=== PATIENT | female | born 1945 | race Caucasian/White ===

== ENCOUNTER → 2016-12-13 | Outpatient (CLI) | payer MEDICARE ==
[~2016-12-13] MED LIST: ****K-Phos500 MG PO; ANAPROX DS550 MG PO; ASCRIPTIN1 TA1 PO; ASPIRIN81 M1 PO; AUGMENTIN 875 M1 TAB PO; CALCIUM ACETAT667 MG PO; CALCIUM1 CAP; CELLCEPT500 MG PO; CIPRODEX 0.3%-7.5 ML OT; CIPROFLOXACIN500 MG PO; COLACE100 MG PO; Diltiazem180 MG PO; FEOSOL325 MG PO; HUMALOG 751 UNIT/0.0 SC; HUMALOG PEN100 U/ML SC; LASIX40 MG PO; LISINOPRIL20 MG PO; METFORMIN1000 MG PO; MULTIVITAMIN1 CTB PO; NORVASC5 MG PO; NYSTATIN100000 U/M PO; OMEPRAZOLE20 M2 PO; PRAVACHOL40 MG PO; PROGRAF0.5 MG PO; ROCALTROL0.25 MC2 PO; SEPTRA DS 800 M1 TAB PO; SODIUM BICARBO650 MG PO; SYNTHROID,LEVO50 MCG; TOPROL XL25 MG PO; VALCYTE450 MG PO; VITAMIN D50000 I2 PO; VITAMIN D50000 I3 PO
[2016-12-13 08:12] LABS: BASO % 0.6 % (0.0-1.0); EOS # 0.2 10*3/uL (0.0-0.4); EOS % 4.2 % (1.0-4.0); HEMATOCRIT 29.5 % (37.0-47.0); HEMOGLOBIN 9.3 g/dl (12.0-16.0); LYMPH % 19.4 % (27.0-41.0); MEAN CELL VOLUME 91.6 fl (81.0-99.0); MEAN CORPUSCULAR HGB 28.9 pg (27.0-31.0); MEAN CORPUSCULAR HGB CONC 31.5 g/dl (33.0-37.0); MEAN PLATELET VOLUME 9.3 fl (9.6-12.3); MONO # 0.3 10*3/uL (0.1-1.0); MONO % 6.6 % (3.0-9.0); NEUT # 3.5 10*3/uL (2.3-7.9); NEUT % 68.8 % (47.0-73.0); PLATELET COUNT AUTOMATED 323 10*3/uL (130-400); RED BLOOD COUNT 3.22 10*6/uL (4.10-5.10); RED CELL DISTRI WIDTH 17.2 % (0-14.5)
[2016-12-13 08:40] LABS: ALBUMIN 2.7 gm/dl (3.1-4.5); ALKALINE PHOSPHATASE 86 U/L (45-117); BILIRUBIN, TOTAL 0.2 mg/dl (0.2-1.0); BUN 10 mg/dl (7-24); CARBON DIOXIDE 21 mmol/L (21-32); CHLORIDE 120 mmol/L (98-107); CHOLESTEROL 90 mg/dL (<200); CPK 31 U/L (26-192); EST GLOM FILT AFRICAN AMERICAN > 60 ml/min; GLUCOSE 88 mg/dL (65-99); LDH 140 U/L (84-246); MAGNESIUM 1.6 mg/dL (1.5-2.1); PHOSPHOROUS 2.1 mg/dL (2.5-4.9); POTASSIUM 5.1 mmol/L (3.5-5.1); SGOT/AST 14 IU/L (3-35); SGPT/ALT 16 U/L (12-78); SODIUM 148 mmol/L (136-145); TOTAL PROTEIN 5.9 gm/dL (6.4-8.2); URIC ACID 6.2 mg/dL (2.6-6.0)
== END | disposition home or self-care (01) ==
LOC: LAB 07:52
PROVIDERS: Surgery
DX: I12.9 Hypertensive chronic kidney disease with stage 1 through stage 4 chronic kidney disease, or unspecified chronic kidney disease (principal); N18.9 Chronic kidney disease, unspecified; E10.9 Type 1 diabetes mellitus without complications; D59.0 Drug-induced autoimmune hemolytic anemia; B25.9 Cytomegaloviral disease, unspecified; E83.40 Disorders of magnesium metabolism, unspecified; E78.2 Mixed hyperlipidemia; Z79.899 Other long term (current) drug therapy; T86.10 Unspecified complication of kidney transplant; Z94.0 Kidney transplant status

== ENCOUNTER → 2016-12-20 | Outpatient (CLI) | payer MEDICARE ==
[2016-12-20 08:48] LABS: BASO % 0.6 % (0.0-1.0); EOS # 0.2 10*3/uL (0.0-0.4); EOS % 3.3 % (1.0-4.0); HEMATOCRIT 32.4 % (37.0-47.0); HEMOGLOBIN 9.8 g/dl (12.0-16.0); LYMPH # 0.9 10*3/uL (1.3-4.4); LYMPH % 17.4 % (27.0-41.0); MEAN CELL VOLUME 91.5 fl (81.0-99.0); MEAN CORPUSCULAR HGB 27.7 pg (27.0-31.0); MEAN CORPUSCULAR HGB CONC 30.2 g/dl (33.0-37.0); MEAN PLATELET VOLUME 10.9 fl (9.6-12.3); MONO # 0.3 10*3/uL (0.1-1.0); MONO % 6.1 % (3.0-9.0); NEUT # 3.7 10*3/uL (2.3-7.9); NEUT % 72.2 % (47.0-73.0); PLATELET COUNT AUTOMATED 261 10*3/uL (130-400); RED BLOOD COUNT 3.54 10*6/uL (4.10-5.10); RED CELL DISTRI WIDTH 17.8 % (0-14.5); WHITE BLOOD COUNT 5.1 10*3/uL (4.8-10.8)
[2016-12-20 09:04] LABS: ALBUMIN 2.7 gm/dl (3.1-4.5); CARBON DIOXIDE 20 mmol/L (21-32); CHLORIDE 121 mmol/L (98-107); EST GLOM FILT AFRICAN AMERICAN > 60 ml/min; GLUCOSE 90 mg/dL (65-99); MAGNESIUM 1.6 mg/dL (1.5-2.1); POTASSIUM 4.8 mmol/L (3.5-5.1); SGOT/AST 16 IU/L (3-35); SGPT/ALT 19 U/L (12-78); SODIUM 148 mmol/L (136-145); URIC ACID 5.8 mg/dL (2.6-6.0)
[2016-12-20 09:08] LABS: ALKALINE PHOSPHATASE 96 U/L (45-117); BILIRUBIN, TOTAL 0.3 mg/dl (0.2-1.0); BUN 14 mg/dl (7-24); CHOLESTEROL 76 mg/dL (<200); CPK 32 U/L (26-192); LDH 161 U/L (84-246); PHOSPHOROUS 1.8 mg/dL (2.5-4.9)
== END | disposition home or self-care (01) ==
LOC: LAB 07:53
PROVIDERS: Surgery
DX: I12.9 Hypertensive chronic kidney disease with stage 1 through stage 4 chronic kidney disease, or unspecified chronic kidney disease (principal); D50.9 Iron deficiency anemia, unspecified; B25.9 Cytomegaloviral disease, unspecified; E83.40 Disorders of magnesium metabolism, unspecified; E10.9 Type 1 diabetes mellitus without complications; E78.2 Mixed hyperlipidemia; T86.10 Unspecified complication of kidney transplant; Z94.0 Kidney transplant status; Z79.899 Other long term (current) drug therapy

== ENCOUNTER → 2016-12-27 | Outpatient (CLI) | payer MEDICARE ==
[2016-12-27 08:15] LABS: BASO % 0.7 % (0.0-1.0); EOS # 0.2 10*3/uL (0.0-0.4); EOS % 4.1 % (1.0-4.0); HEMATOCRIT 32.4 % (37.0-47.0); HEMOGLOBIN 9.9 g/dl (12.0-16.0); LYMPH # 0.9 10*3/uL (1.3-4.4); LYMPH % 20.5 % (27.0-41.0); MEAN CELL VOLUME 91.8 fl (81.0-99.0); MEAN CORPUSCULAR HGB CONC 30.6 g/dl (33.0-37.0); MEAN PLATELET VOLUME 10.8 fl (9.6-12.3); MONO # 0.3 10*3/uL (0.1-1.0); MONO % 5.8 % (3.0-9.0); NEUT % 68.4 % (47.0-73.0); PLATELET COUNT AUTOMATED 231 10*3/uL (130-400); RED BLOOD COUNT 3.53 10*6/uL (4.10-5.10); RED CELL DISTRI WIDTH 17.6 % (0-14.5); WHITE BLOOD COUNT 4.3 10*3/uL (4.8-10.8)
[2016-12-27 08:45] LABS: ALBUMIN 2.8 gm/dl (3.1-4.5); BUN 20 mg/dl (7-24); CARBON DIOXIDE 21 mmol/L (21-32); CHLORIDE 117 mmol/L (98-107); EST GLOM FILT AFRICAN AMERICAN > 60 ml/min; GLUCOSE 80 mg/dL (65-99); MAGNESIUM 1.5 mg/dL (1.5-2.1); PHOSPHOROUS 2.3 mg/dL (2.5-4.9); POTASSIUM 4.2 mmol/L (3.5-5.1); SGOT/AST 14 IU/L (3-35); SGPT/ALT 16 U/L (12-78); SODIUM 144 mmol/L (136-145); URIC ACID 5.6 mg/dL (2.6-6.0)
[2016-12-27 08:47] LABS: ALKALINE PHOSPHATASE 104 U/L (45-117); BILIRUBIN, TOTAL 0.2 mg/dl (0.2-1.0); CPK 35 U/L (26-192); LDH 144 U/L (84-246)
== END | disposition home or self-care (01) ==
LOC: LAB 07:43
PROVIDERS: Surgery
DX: I12.9 Hypertensive chronic kidney disease with stage 1 through stage 4 chronic kidney disease, or unspecified chronic kidney disease (principal); B25.9 Cytomegaloviral disease, unspecified; E10.22 Type 1 diabetes mellitus with diabetic chronic kidney disease; E83.40 Disorders of magnesium metabolism, unspecified; E78.2 Mixed hyperlipidemia; D59.0 Drug-induced autoimmune hemolytic anemia; T86.10 Unspecified complication of kidney transplant; Z79.899 Other long term (current) drug therapy; Z94.0 Kidney transplant status

== ENCOUNTER → 2017-01-10 | Outpatient (CLI) | payer MEDICARE ==
[2017-01-10 07:57] LABS: BASO % 0.6 % (0.0-1.0); EOS # 0.2 10*3/uL (0.0-0.4); EOS % 4.4 % (1.0-4.0); HEMATOCRIT 31.9 % (37.0-47.0); HEMOGLOBIN 9.9 g/dl (12.0-16.0); LYMPH % 18.7 % (27.0-41.0); MEAN CELL VOLUME 91.4 fl (81.0-99.0); MEAN CORPUSCULAR HGB 28.4 pg (27.0-31.0); MEAN PLATELET VOLUME 9.7 fl (9.6-12.3); MONO # 0.3 10*3/uL (0.1-1.0); MONO % 4.8 % (3.0-9.0); NEUT # 3.7 10*3/uL (2.3-7.9); NEUT % 71.1 % (47.0-73.0); PLATELET COUNT AUTOMATED 199 10*3/uL (130-400); RED BLOOD COUNT 3.49 10*6/uL (4.10-5.10); RED CELL DISTRI WIDTH 16.9 % (0-14.5); WHITE BLOOD COUNT 5.2 10*3/uL (4.8-10.8)
[2017-01-10 08:16] LABS: BILIRUBIN, TOTAL 0.3 mg/dl (0.2-1.0); MAGNESIUM 1.5 mg/dL (1.5-2.1); PHOSPHOROUS 2.5 mg/dL (2.5-4.9); POTASSIUM 4.6 mmol/L (3.5-5.1); TOTAL PROTEIN 6.2 gm/dL (6.4-8.2); URIC ACID 6.2 mg/dL (2.6-6.0)
== END | disposition home or self-care (01) ==
LOC: LAB 07:37
PROVIDERS: Surgery
DX: I12.9 Hypertensive chronic kidney disease with stage 1 through stage 4 chronic kidney disease, or unspecified chronic kidney disease (principal); N18.9 Chronic kidney disease, unspecified; D59.0 Drug-induced autoimmune hemolytic anemia; B25.9 Cytomegaloviral disease, unspecified; E83.40 Disorders of magnesium metabolism, unspecified; E10.22 Type 1 diabetes mellitus with diabetic chronic kidney disease; E78.2 Mixed hyperlipidemia; T86.10 Unspecified complication of kidney transplant; Z94.0 Kidney transplant status; Z79.899 Other long term (current) drug therapy

== ENCOUNTER → 2017-01-17 | Outpatient (CLI) | payer MEDICARE ==
[2017-01-17 08:17] LABS: BASO % 0.2 % (0.0-1.0); EOS # 0.2 10*3/uL (0.0-0.4); EOS % 3.9 % (1.0-4.0); HEMATOCRIT 31.9 % (37.0-47.0); IG # 0.1 10*3/uL (0.0-0.1); LYMPH # 0.9 10*3/uL (1.3-4.4); LYMPH % 14.7 % (27.0-41.0); MEAN CELL VOLUME 90.9 fl (81.0-99.0); MEAN CORPUSCULAR HGB 28.5 pg (27.0-31.0); MEAN CORPUSCULAR HGB CONC 31.3 g/dl (33.0-37.0); MONO # 0.2 10*3/uL (0.1-1.0); MONO % 3.9 % (3.0-9.0); NEUT # 4.5 10*3/uL (2.3-7.9); NEUT % 75.9 % (47.0-73.0); PLATELET COUNT AUTOMATED 233 10*3/uL (130-400); RED BLOOD COUNT 3.51 10*6/uL (4.10-5.10); RED CELL DISTRI WIDTH 16.7 % (0-14.5); WHITE BLOOD COUNT 5.9 10*3/uL (4.8-10.8)
[2017-01-17 08:47] LABS: BUN 15 mg/dl (7-24); CARBON DIOXIDE 23 mmol/L (21-32); CHLORIDE 115 mmol/L (98-107); CHOLESTEROL 81 mg/dL (<200); EST GLOM FILT AFRICAN AMERICAN > 60 ml/min; GLUCOSE 116 mg/dL (65-99); MAGNESIUM 1.4 mg/dL (1.5-2.1); PHOSPHOROUS 1.9 mg/dL (2.5-4.9); POTASSIUM 4.2 mmol/L (3.5-5.1); SGOT/AST 15 IU/L (3-35); SGPT/ALT 17 U/L (12-78); SODIUM 143 mmol/L (136-145); URIC ACID 5.2 mg/dL (2.6-6.0)
[2017-01-17 08:50] LABS: ALKALINE PHOSPHATASE 94 U/L (45-117); BILIRUBIN, TOTAL 0.2 mg/dl (0.2-1.0); CPK 31 U/L (26-192); LDH 128 U/L (84-246); TOTAL PROTEIN 6.2 gm/dL (6.4-8.2)
== END | disposition home or self-care (01) ==
LOC: LAB 07:39
PROVIDERS: Surgery
DX: I12.9 Hypertensive chronic kidney disease with stage 1 through stage 4 chronic kidney disease, or unspecified chronic kidney disease (principal); E10.22 Type 1 diabetes mellitus with diabetic chronic kidney disease; N18.9 Chronic kidney disease, unspecified; B25.9 Cytomegaloviral disease, unspecified; D59.0 Drug-induced autoimmune hemolytic anemia; E83.40 Disorders of magnesium metabolism, unspecified; E78.2 Mixed hyperlipidemia; T86.10 Unspecified complication of kidney transplant; Z94.0 Kidney transplant status; Z79.899 Other long term (current) drug therapy

== ENCOUNTER → 2017-01-24 | Outpatient (CLI) | payer MEDICARE ==
[2017-01-24 08:21] LABS: BASO % 0.2 % (0.0-1.0); EOS # 0.2 10*3/uL (0.0-0.4); EOS % 2.7 % (1.0-4.0); HEMATOCRIT 31.6 % (37.0-47.0); HEMOGLOBIN 9.9 g/dl (12.0-16.0); LYMPH # 0.8 10*3/uL (1.3-4.4); LYMPH % 10.2 % (27.0-41.0); MEAN CELL VOLUME 90.5 fl (81.0-99.0); MEAN CORPUSCULAR HGB 28.4 pg (27.0-31.0); MEAN CORPUSCULAR HGB CONC 31.3 g/dl (33.0-37.0); MEAN PLATELET VOLUME 10.5 fl (9.6-12.3); MONO # 0.5 10*3/uL (0.1-1.0); MONO % 5.5 % (3.0-9.0); NEUT # 6.6 10*3/uL (2.3-7.9); NEUT % 80.9 % (47.0-73.0); PLATELET COUNT AUTOMATED 243 10*3/uL (130-400); RED BLOOD COUNT 3.49 10*6/uL (4.10-5.10); RED CELL DISTRI WIDTH 15.8 % (0-14.5); WHITE BLOOD COUNT 8.2 10*3/uL (4.8-10.8)
[2017-01-24 08:36] LABS: ALKALINE PHOSPHATASE 84 U/L (45-117); BILIRUBIN, TOTAL 0.4 mg/dl (0.2-1.0); BUN 10 mg/dl (7-24); CARBON DIOXIDE 24 mmol/L (21-32); CHLORIDE 111 mmol/L (98-107); CHOLESTEROL 82 mg/dL (<200); CPK 30 U/L (26-192); EST GLOM FILT AFRICAN AMERICAN > 60 ml/min; GLUCOSE 97 mg/dL (65-99); LDH 146 U/L (84-246); MAGNESIUM 1.4 mg/dL (1.5-2.1); PHOSPHOROUS 2.8 mg/dL (2.5-4.9); POTASSIUM 4.3 mmol/L (3.5-5.1); SGOT/AST 12 IU/L (3-35); SGPT/ALT 14 U/L (12-78); SODIUM 141 mmol/L (136-145); TOTAL PROTEIN 6.4 gm/dL (6.4-8.2); URIC ACID 4.9 mg/dL (2.6-6.0)
== END | disposition home or self-care (01) ==
LOC: LAB 07:48
PROVIDERS: Surgery
DX: I12.9 Hypertensive chronic kidney disease with stage 1 through stage 4 chronic kidney disease, or unspecified chronic kidney disease (principal); E10.22 Type 1 diabetes mellitus with diabetic chronic kidney disease; N18.9 Chronic kidney disease, unspecified; B25.9 Cytomegaloviral disease, unspecified; E83.40 Disorders of magnesium metabolism, unspecified; E78.2 Mixed hyperlipidemia; T86.10 Unspecified complication of kidney transplant; D59.0 Drug-induced autoimmune hemolytic anemia; Z94.0 Kidney transplant status; Z79.899 Other long term (current) drug therapy

== ENCOUNTER 2017-02-03 09:26 | Inpatient (IN) | payer MEDICARE ==
[~2017-02-03] VITALS: Ht 147.3 cm; Wt 73.9 kg
[2017-02-03] MEDS ORDERED: SYNTHROID25 MCG PO (09:38)
[2017-02-03 09:41] VITALS: BP 132/54
[2017-02-03] MEDS ORDERED: PROGRAF0.5 MG PO ×2 (09:41→09:43)
[2017-02-03] MEDS ORDERED: SEPTRA DS 800 M1 TAB PO (09:49)
[2017-02-03] MEDS ORDERED: Magnesium Oxid400 MG PO (09:52)
[2017-02-03] MEDS ORDERED: SMZ-TMP 400 MG-1 TAB PO (09:54)
[2017-02-03] MEDS ORDERED: FEROSUL325 M1 PO (09:58)
[2017-02-03 10:06] LABS: HEMATOCRIT 31.6 % (37.0-47.0); HEMOGLOBIN 9.7 g/dl (12.0-16.0); MEAN CELL VOLUME 91.3 fl (81.0-99.0); MEAN CORPUSCULAR HGB CONC 30.7 g/dl (33.0-37.0); MEAN PLATELET VOLUME 10.4 fl (9.6-12.3); PLATELET COUNT AUTOMATED 315 10*3/uL (130-400); RED BLOOD COUNT 3.46 10*6/uL (4.10-5.10); RED CELL DISTRI WIDTH 14.3 % (0-14.5); WHITE BLOOD COUNT 20.9 10*3/uL (4.8-10.8)
[2017-02-03 10:23] LABS: POTASSIUM 3.5 mmol/L (3.5-5.1)
[2017-02-03 10:26] LABS: TROPONIN I 0.298 ng/ml (<0.045)
[2017-02-03 10:33] LABS: LYMPHOCYTE # 0.4 10*3/uL (1.3-4.4); NEUTROPHIL # 19.4 10*3/uL (2.3-7.9); NEUTROPHILS 93 % (47-73); PLATELET SUFFICIENCY NORMAL (NORMAL); TOTAL CELLS COUNTED 100 #CELLS
[2017-02-03 11:32] VITALS: BP 162/92
[2017-02-03 11:33] LABS: BILIRUBIN NEGATIVE (NEGATIVE); BLOOD NEGATIVE (NEGATIVE); CLARITY SL CLOUDY (CLEAR); COLOR YELLOW (YELLOW); GLUCOSE NEGATIVE (NEGATIVE); KETONE NEGATIVE (NEGATIVE); LEUKO ESTERASE NEGATIVE (NEGATIVE); NITRITE NEGATIVE (NEGATIVE); PROTEIN TRACE (NEGATIVE); SPECIFIC GRAVITY 1.025 (1.005-1.030); UROBILINOGEN 0.2 E.U./dl (0.2-1.0)
[2017-02-03 11:36] VITALS: BP 142/51
[2017-02-03 11:47] LABS: BACTERIA TRACE; MUCOUS 1+
[2017-02-03 11:48] LABS: URINE REFLEX COMMENT NO (NO)
[2017-02-03 13:36] VITALS: BP 143/54
[2017-02-03 16:00] VITALS: BP 134/54
[2017-02-03 18:41] LABS: TROPONIN I 3.05 ng/ml (<0.045)
[2017-02-03 20:00] VITALS: BP 145/58
[2017-02-03] MEDS ORDERED: LISINOPRIL2.5 MG PO (20:28)
== END 2017-02-03 20:15 | disposition short-term general hospital (02) | DRG 871 ==
LOC: ED 09:26 → EDHOLD 12:01 → 4E 12:30
PROVIDERS: Emergency Medicine; Hospitalist
DX: A41.9 Sepsis, unspecified organism (principal); I21.4 Non-ST elevation (NSTEMI) myocardial infarction; N17.9 Acute kidney failure, unspecified; E44.0 Moderate protein-calorie malnutrition; N18.6 End stage renal disease; L02.31 Cutaneous abscess of buttock; K61.1 Rectal abscess; Z94.0 Kidney transplant status; K52.9 Noninfective gastroenteritis and colitis, unspecified; E86.0 Dehydration; E11.22 Type 2 diabetes mellitus with diabetic chronic kidney disease; E03.9 Hypothyroidism, unspecified; E61.1 Iron deficiency; Z68.34 Body mass index [BMI] 34.0-34.9, adult; Z90.710 Acquired absence of both cervix and uterus; Z79.4 Long term (current) use of insulin; Z79.899 Other long term (current) drug therapy; Z82.49 Family history of ischemic heart disease and other diseases of the circulatory system

== ENCOUNTER → 2017-02-10 | Outpatient (CLI) | payer MEDICARE ==
[~2017-02-10] MED LIST changes: +FEROSUL325 M1 PO; +LISINOPRIL2.5 MG PO; +Magnesium Oxid400 MG PO; +SMZ-TMP 400 MG-1 TAB PO; +SYNTHROID25 MCG PO
[2017-02-10 08:32] LABS: BASO % 0.4 % (0.0-1.0); EOS # 0.1 10*3/uL (0.0-0.4); EOS % 1.8 % (1.0-4.0); HEMATOCRIT 28.6 % (37.0-47.0); HEMOGLOBIN 8.9 g/dl (12.0-16.0); IG # 0.1 10*3/uL (0.0-0.1); LYMPH # 0.5 10*3/uL (1.3-4.4); LYMPH % 10.7 % (27.0-41.0); MEAN CELL VOLUME 89.7 fl (81.0-99.0); MEAN CORPUSCULAR HGB 27.9 pg (27.0-31.0); MEAN CORPUSCULAR HGB CONC 31.1 g/dl (33.0-37.0); MEAN PLATELET VOLUME 10.5 fl (9.6-12.3); MONO # 0.4 10*3/uL (0.1-1.0); MONO % 7.9 % (3.0-9.0); NEUT % 78.2 % (47.0-73.0); PLATELET COUNT AUTOMATED 269 10*3/uL (130-400); RED BLOOD COUNT 3.19 10*6/uL (4.10-5.10); RED CELL DISTRI WIDTH 14.8 % (0-14.5); WHITE BLOOD COUNT 5.1 10*3/uL (4.8-10.8)
[2017-02-10 08:58] LABS: MAGNESIUM 1.6 mg/dL (1.5-2.1); PHOSPHOROUS 3.9 mg/dL (2.5-4.9); POTASSIUM 3.7 mmol/L (3.5-5.1); URIC ACID 5.3 mg/dL (2.6-6.0)
== END | disposition home or self-care (01) ==
LOC: LAB 08:00
PROVIDERS: Surgery
DX: I12.9 Hypertensive chronic kidney disease with stage 1 through stage 4 chronic kidney disease, or unspecified chronic kidney disease (principal); D50.9 Iron deficiency anemia, unspecified; E10.22 Type 1 diabetes mellitus with diabetic chronic kidney disease; N18.9 Chronic kidney disease, unspecified; B25.9 Cytomegaloviral disease, unspecified; E83.40 Disorders of magnesium metabolism, unspecified; E78.2 Mixed hyperlipidemia; T86.10 Unspecified complication of kidney transplant; Z79.899 Other long term (current) drug therapy; Z94.0 Kidney transplant status

== ENCOUNTER → 2017-02-14 | Outpatient (CLI) | payer MEDICARE ==
[2017-02-14 08:17] LABS: BASO % 0.3 % (0.0-1.0); EOS # 0.2 10*3/uL (0.0-0.4); EOS % 6.4 % (1.0-4.0); HEMATOCRIT 27.9 % (37.0-47.0); HEMOGLOBIN 8.6 g/dl (12.0-16.0); LYMPH # 0.8 10*3/uL (1.3-4.4); MEAN CELL VOLUME 90.9 fl (81.0-99.0); MEAN CORPUSCULAR HGB CONC 30.8 g/dl (33.0-37.0); MEAN PLATELET VOLUME 9.9 fl (9.6-12.3); MONO # 0.1 10*3/uL (0.1-1.0); MONO % 4.1 % (3.0-9.0); NEUT # 2.2 10*3/uL (2.3-7.9); NEUT % 64.3 % (47.0-73.0); PLATELET COUNT AUTOMATED 224 10*3/uL (130-400); RED BLOOD COUNT 3.07 10*6/uL (4.10-5.10); RED CELL DISTRI WIDTH 15.5 % (0-14.5); WHITE BLOOD COUNT 3.4 10*3/uL (4.8-10.8)
[2017-02-14 08:50] LABS: POTASSIUM 3.8 mmol/L (3.5-5.1)
[2017-02-14 09:03] LABS: ALBUMIN 2.3 gm/dl (3.1-4.5); BILIRUBIN, TOTAL 0.4 mg/dl (0.2-1.0); MAGNESIUM 1.4 mg/dL (1.5-2.1); PHOSPHOROUS 4.5 mg/dL (2.5-4.9); TOTAL PROTEIN 5.1 gm/dL (6.4-8.2); URIC ACID 6.3 mg/dL (2.6-6.0)
== END | disposition home or self-care (01) ==
LOC: LAB 07:40
PROVIDERS: Surgery
DX: E78.2 Mixed hyperlipidemia (principal); D59.0 Drug-induced autoimmune hemolytic anemia; B25.9 Cytomegaloviral disease, unspecified; E83.40 Disorders of magnesium metabolism, unspecified; E10.22 Type 1 diabetes mellitus with diabetic chronic kidney disease; I12.9 Hypertensive chronic kidney disease with stage 1 through stage 4 chronic kidney disease, or unspecified chronic kidney disease; N18.9 Chronic kidney disease, unspecified; T86.10 Unspecified complication of kidney transplant; Z79.899 Other long term (current) drug therapy; Z94.0 Kidney transplant status

== ENCOUNTER → 2017-02-17 | Outpatient (CLI) | payer MEDICARE ==
[~2017-02-17] MED LIST changes: +CEFDINIR300 MG PO; +METRONIDAZOLE500 M1 PO
[2017-02-17 08:17] LABS: BASO % 0.6 % (0.0-1.0); EOS # 0.2 10*3/uL (0.0-0.4); HEMOGLOBIN 8.8 g/dl (12.0-16.0); LYMPH # 1.1 10*3/uL (1.3-4.4); LYMPH % 21.1 % (27.0-41.0); MEAN CELL VOLUME 91.5 fl (81.0-99.0); MEAN CORPUSCULAR HGB 27.8 pg (27.0-31.0); MEAN CORPUSCULAR HGB CONC 30.3 g/dl (33.0-37.0); MEAN PLATELET VOLUME 10.8 fl (9.6-12.3); MONO # 0.2 10*3/uL (0.1-1.0); MONO % 3.2 % (3.0-9.0); NEUT # 3.6 10*3/uL (2.3-7.9); NEUT % 70.7 % (47.0-73.0); PLATELET COUNT AUTOMATED 227 10*3/uL (130-400); RED BLOOD COUNT 3.17 10*6/uL (4.10-5.10); RED CELL DISTRI WIDTH 15.9 % (0-14.5); WHITE BLOOD COUNT 5.1 10*3/uL (4.8-10.8)
[2017-02-17 08:28] LABS: MAGNESIUM 1.6 mg/dL (1.5-2.1); POTASSIUM 3.9 mmol/L (3.5-5.1); URIC ACID 6.4 mg/dL (2.6-6.0)
== END | disposition home or self-care (01) ==
LOC: LAB 07:57
PROVIDERS: Surgery
DX: I12.9 Hypertensive chronic kidney disease with stage 1 through stage 4 chronic kidney disease, or unspecified chronic kidney disease (principal); N18.9 Chronic kidney disease, unspecified; D59.0 Drug-induced autoimmune hemolytic anemia; B25.9 Cytomegaloviral disease, unspecified; E83.40 Disorders of magnesium metabolism, unspecified; E10.22 Type 1 diabetes mellitus with diabetic chronic kidney disease; E78.2 Mixed hyperlipidemia; T86.10 Unspecified complication of kidney transplant; Z79.899 Other long term (current) drug therapy; Z94.0 Kidney transplant status

== ENCOUNTER 2017-02-18 21:30 | Emergency (ER) | payer MEDICARE ==
[~2017-02-18] VITALS: Ht 147.3 cm; Wt 68.0 kg
[~2017-02-18 21:30] MED LIST changes: -CEFDINIR300 MG PO; -METRONIDAZOLE500 M1 PO
[2017-02-18] MEDS ORDERED: PROGRAF0.5 MG PO (21:58)
[2017-02-18] MEDS ORDERED: CEFDINIR300 MG PO (22:00)
[2017-02-18] MEDS ORDERED: METRONIDAZOLE500 M1 PO (22:00)
[2017-02-18 22:27] LABS: BASO % 0.5 % (0.0-1.0); EOS # 0.1 10*3/uL (0.0-0.4); EOS % 2.5 % (1.0-4.0); HEMATOCRIT 27.5 % (37.0-47.0); HEMOGLOBIN 8.4 g/dl (12.0-16.0); LYMPH # 0.6 10*3/uL (1.3-4.4); LYMPH % 10.6 % (27.0-41.0); MEAN CELL VOLUME 91.7 fl (81.0-99.0); MEAN CORPUSCULAR HGB CONC 30.5 g/dl (33.0-37.0); MEAN PLATELET VOLUME 10.2 fl (9.6-12.3); MONO # 0.2 10*3/uL (0.1-1.0); MONO % 3.2 % (3.0-9.0); NEUT # 4.7 10*3/uL (2.3-7.9); NEUT % 82.5 % (47.0-73.0); PLATELET COUNT AUTOMATED 203 10*3/uL (130-400); RED CELL DISTRI WIDTH 16.2 % (0-14.5); WHITE BLOOD COUNT 5.6 10*3/uL (4.8-10.8)
[2017-02-18 22:41] LABS: POTASSIUM 3.7 mmol/L (3.5-5.1)
== END 2017-02-19 00:55 | disposition home or self-care (01) ==
LOC: ED 21:30
PROVIDERS: Family Medicine
DX: E11.649 Type 2 diabetes mellitus with hypoglycemia without coma (principal); I12.0 Hypertensive chronic kidney disease with stage 5 chronic kidney disease or end stage renal disease; N18.6 End stage renal disease; E03.9 Hypothyroidism, unspecified; Z79.4 Long term (current) use of insulin; Z79.899 Other long term (current) drug therapy

== ENCOUNTER → 2017-02-21 | Outpatient (CLI) | payer MEDICARE ==
[~2017-02-21] MED LIST changes: +CEFDINIR300 MG PO; +METRONIDAZOLE500 M1 PO
[2017-02-21 08:07] LABS: BASO % 0.9 % (0.0-1.0); EOS # 0.2 10*3/uL (0.0-0.4); EOS % 4.3 % (1.0-4.0); HEMATOCRIT 27.6 % (37.0-47.0); HEMOGLOBIN 8.3 g/dl (12.0-16.0); LYMPH # 1.3 10*3/uL (1.3-4.4); LYMPH % 27.4 % (27.0-41.0); MEAN CELL VOLUME 93.6 fl (81.0-99.0); MEAN CORPUSCULAR HGB 28.1 pg (27.0-31.0); MEAN CORPUSCULAR HGB CONC 30.1 g/dl (33.0-37.0); MONO # 0.2 10*3/uL (0.1-1.0); MONO % 3.5 % (3.0-9.0); NEUT # 2.9 10*3/uL (2.3-7.9); NEUT % 63.5 % (47.0-73.0); PLATELET COUNT AUTOMATED 212 10*3/uL (130-400); RED BLOOD COUNT 2.95 10*6/uL (4.10-5.10); RED CELL DISTRI WIDTH 17.2 % (0-14.5); WHITE BLOOD COUNT 4.6 10*3/uL (4.8-10.8)
[2017-02-21 08:36] LABS: ALBUMIN 2.5 gm/dl (3.1-4.5); BILIRUBIN, TOTAL 0.2 mg/dl (0.2-1.0); MAGNESIUM 1.6 mg/dL (1.5-2.1); PHOSPHOROUS 4.3 mg/dL (2.5-4.9); POTASSIUM 4.8 mmol/L (3.5-5.1); TOTAL PROTEIN 5.4 gm/dL (6.4-8.2); URIC ACID 6.6 mg/dL (2.6-6.0)
== END | disposition home or self-care (01) ==
LOC: LAB 07:27
PROVIDERS: Surgery
DX: E78.2 Mixed hyperlipidemia (principal); D59.0 Drug-induced autoimmune hemolytic anemia; B25.9 Cytomegaloviral disease, unspecified; T86.10 Unspecified complication of kidney transplant; E83.40 Disorders of magnesium metabolism, unspecified; I10 Essential (primary) hypertension; E10.9 Type 1 diabetes mellitus without complications; Z79.899 Other long term (current) drug therapy; Z94.0 Kidney transplant status

== ENCOUNTER → 2017-02-24 | Outpatient (CLI) | payer MEDICARE ==
[2017-02-24 08:25] LABS: BASO % 0.6 % (0.0-1.0); EOS # 0.2 10*3/uL (0.0-0.4); EOS % 6.5 % (1.0-4.0); HEMATOCRIT 29.4 % (37.0-47.0); HEMOGLOBIN 8.8 g/dl (12.0-16.0); LYMPH # 0.7 10*3/uL (1.3-4.4); LYMPH % 19.4 % (27.0-41.0); MEAN CELL VOLUME 94.8 fl (81.0-99.0); MEAN CORPUSCULAR HGB 28.4 pg (27.0-31.0); MEAN CORPUSCULAR HGB CONC 29.9 g/dl (33.0-37.0); MEAN PLATELET VOLUME 11.2 fl (9.6-12.3); MONO # 0.1 10*3/uL (0.1-1.0); MONO % 2.3 % (3.0-9.0); NEUT # 2.4 10*3/uL (2.3-7.9); NEUT % 70.6 % (47.0-73.0); PLATELET COUNT AUTOMATED 230 10*3/uL (130-400); RED CELL DISTRI WIDTH 17.5 % (0-14.5); WHITE BLOOD COUNT 3.4 10*3/uL (4.8-10.8)
[2017-02-24 08:53] LABS: MAGNESIUM 1.5 mg/dL (1.5-2.1); PHOSPHOROUS 4.5 mg/dL (2.5-4.9); POTASSIUM 4.5 mmol/L (3.5-5.1); URIC ACID 5.4 mg/dL (2.6-6.0)
== END | disposition home or self-care (01) ==
LOC: LAB 07:45
PROVIDERS: Surgery
DX: I12.9 Hypertensive chronic kidney disease with stage 1 through stage 4 chronic kidney disease, or unspecified chronic kidney disease (principal); E10.9 Type 1 diabetes mellitus without complications; D59.0 Drug-induced autoimmune hemolytic anemia; B25.9 Cytomegaloviral disease, unspecified; E83.40 Disorders of magnesium metabolism, unspecified; E78.2 Mixed hyperlipidemia; Z94.0 Kidney transplant status; Z79.899 Other long term (current) drug therapy

== ENCOUNTER → 2017-02-28 | Outpatient (CLI) | payer MEDICARE ==
[2017-02-28 08:31] LABS: BASO % 1.1 % (0.0-1.0); EOS # 0.2 10*3/uL (0.0-0.4); HEMATOCRIT 28.4 % (37.0-47.0); HEMOGLOBIN 8.4 g/dl (12.0-16.0); LYMPH # 0.7 10*3/uL (1.3-4.4); LYMPH % 19.7 % (27.0-41.0); MEAN CELL VOLUME 94.7 fl (81.0-99.0); MEAN CORPUSCULAR HGB CONC 29.6 g/dl (33.0-37.0); MEAN PLATELET VOLUME 10.9 fl (9.6-12.3); MONO # 0.1 10*3/uL (0.1-1.0); MONO % 1.7 % (3.0-9.0); NEUT # 2.5 10*3/uL (2.3-7.9); NEUT % 70.9 % (47.0-73.0); PLATELET COUNT AUTOMATED 209 10*3/uL (130-400); RED CELL DISTRI WIDTH 18.2 % (0-14.5); WHITE BLOOD COUNT 3.5 10*3/uL (4.8-10.8)
[2017-02-28 08:54] LABS: ALBUMIN 2.7 gm/dl (3.1-4.5); BILIRUBIN, TOTAL 0.3 mg/dl (0.2-1.0); MAGNESIUM 1.6 mg/dL (1.5-2.1); PHOSPHOROUS 5.8 mg/dL (2.5-4.9); TOTAL PROTEIN 6.2 gm/dL (6.4-8.2); URIC ACID 4.3 mg/dL (2.6-6.0)
[2017-02-28 09:45] LABS: POTASSIUM 6.2 mmol/L (3.5-5.1)
== END | disposition home or self-care (01) ==
LOC: LAB 07:59
PROVIDERS: Surgery
DX: I12.9 Hypertensive chronic kidney disease with stage 1 through stage 4 chronic kidney disease, or unspecified chronic kidney disease (principal); E10.22 Type 1 diabetes mellitus with diabetic chronic kidney disease; N18.9 Chronic kidney disease, unspecified; D59.0 Drug-induced autoimmune hemolytic anemia; B25.9 Cytomegaloviral disease, unspecified; E83.40 Disorders of magnesium metabolism, unspecified; E78.2 Mixed hyperlipidemia; T86.10 Unspecified complication of kidney transplant; Z79.899 Other long term (current) drug therapy; Z94.0 Kidney transplant status

== ENCOUNTER → 2017-03-01 | Outpatient (CLI) | payer MEDICARE ==
[2017-03-01 08:26] LABS: BASO % 1.3 % (0.0-1.0); EOS # 0.2 10*3/uL (0.0-0.4); EOS % 6.6 % (1.0-4.0); HEMOGLOBIN 8.6 g/dl (12.0-16.0); LYMPH # 0.7 10*3/uL (1.3-4.4); LYMPH % 22.7 % (27.0-41.0); MEAN CELL VOLUME 94.5 fl (81.0-99.0); MEAN CORPUSCULAR HGB CONC 29.7 g/dl (33.0-37.0); MEAN PLATELET VOLUME 10.2 fl (9.6-12.3); MONO # 0.1 10*3/uL (0.1-1.0); NEUT % 67.1 % (47.0-73.0); PLATELET COUNT AUTOMATED 211 10*3/uL (130-400); RED BLOOD COUNT 3.07 10*6/uL (4.10-5.10); RED CELL DISTRI WIDTH 18.2 % (0-14.5)
[2017-03-01 09:01] LABS: MAGNESIUM 1.6 mg/dL (1.5-2.1); PHOSPHOROUS 5.3 mg/dL (2.5-4.9); URIC ACID 4.2 mg/dL (2.6-6.0)
[2017-03-01 09:02] LABS: POTASSIUM 4.8 mmol/L (3.5-5.1)
== END | disposition home or self-care (01) ==
LOC: LAB 07:59
PROVIDERS: Surgery
DX: I12.9 Hypertensive chronic kidney disease with stage 1 through stage 4 chronic kidney disease, or unspecified chronic kidney disease (principal); E10.22 Type 1 diabetes mellitus with diabetic chronic kidney disease; N18.9 Chronic kidney disease, unspecified; E78.2 Mixed hyperlipidemia; D59.0 Drug-induced autoimmune hemolytic anemia; B25.9 Cytomegaloviral disease, unspecified; E83.40 Disorders of magnesium metabolism, unspecified; Z79.899 Other long term (current) drug therapy; Z94.0 Kidney transplant status; T86.10 Unspecified complication of kidney transplant

== ENCOUNTER → 2017-03-07 | Outpatient (CLI) | payer MEDICARE ==
[2017-03-07 08:14] LABS: BASO % 0.7 % (0.0-1.0); EOS # 0.2 10*3/uL (0.0-0.4); EOS % 3.7 % (1.0-4.0); HEMATOCRIT 28.2 % (37.0-47.0); HEMOGLOBIN 8.7 g/dl (12.0-16.0); LYMPH # 0.9 10*3/uL (1.3-4.4); LYMPH % 22.1 % (27.0-41.0); MEAN CELL VOLUME 95.3 fl (81.0-99.0); MEAN CORPUSCULAR HGB 29.4 pg (27.0-31.0); MEAN CORPUSCULAR HGB CONC 30.9 g/dl (33.0-37.0); MEAN PLATELET VOLUME 10.4 fl (9.6-12.3); NEUT # 2.9 10*3/uL (2.3-7.9); PLATELET COUNT AUTOMATED 229 10*3/uL (130-400); RED BLOOD COUNT 2.96 10*6/uL (4.10-5.10); RED CELL DISTRI WIDTH 18.8 % (0-14.5)
[2017-03-07 08:42] LABS: BILIRUBIN, TOTAL 0.2 mg/dl (0.2-1.0); MAGNESIUM 1.8 mg/dL (1.5-2.1); PHOSPHOROUS 3.5 mg/dL (2.5-4.9); POTASSIUM 5.3 mmol/L (3.5-5.1); TOTAL PROTEIN 6.3 gm/dL (6.4-8.2); URIC ACID 5.1 mg/dL (2.6-6.0)
== END | disposition home or self-care (01) ==
LOC: LAB 07:45
PROVIDERS: Surgery
DX: E78.2 Mixed hyperlipidemia (principal); E10.22 Type 1 diabetes mellitus with diabetic chronic kidney disease; I10 Essential (primary) hypertension; D59.0 Drug-induced autoimmune hemolytic anemia; B25.9 Cytomegaloviral disease, unspecified; E83.40 Disorders of magnesium metabolism, unspecified; T86.10 Unspecified complication of kidney transplant; Z94.0 Kidney transplant status; Z79.899 Other long term (current) drug therapy

== ENCOUNTER → 2017-03-10 | Outpatient (CLI) | payer MEDICARE ==
[2017-03-10 08:57] LABS: PHOSPHOROUS 3.6 mg/dL (2.5-4.9); POTASSIUM 4.8 mmol/L (3.5-5.1); URIC ACID 5.4 mg/dL (2.6-6.0)
[2017-03-10 08:58] LABS: BASO % 0.5 % (0.0-1.0); EOS # 0.1 10*3/uL (0.0-0.4); EOS % 2.1 % (1.0-4.0); HEMATOCRIT 27.1 % (37.0-47.0); HEMOGLOBIN 8.5 g/dl (12.0-16.0); LYMPH # 0.7 10*3/uL (1.3-4.4); LYMPH % 17.5 % (27.0-41.0); MEAN CELL VOLUME 95.1 fl (81.0-99.0); MEAN CORPUSCULAR HGB 29.8 pg (27.0-31.0); MEAN CORPUSCULAR HGB CONC 31.4 g/dl (33.0-37.0); MEAN PLATELET VOLUME 10.7 fl (9.6-12.3); MONO # 0.1 10*3/uL (0.1-1.0); MONO % 1.9 % (3.0-9.0); NEUT # 3.3 10*3/uL (2.3-7.9); NEUT % 77.5 % (47.0-73.0); PLATELET COUNT AUTOMATED 213 10*3/uL (130-400); RED BLOOD COUNT 2.85 10*6/uL (4.10-5.10); WHITE BLOOD COUNT 4.2 10*3/uL (4.8-10.8)
== END | disposition home or self-care (01) ==
LOC: LAB 08:04
PROVIDERS: Surgery
DX: I12.9 Hypertensive chronic kidney disease with stage 1 through stage 4 chronic kidney disease, or unspecified chronic kidney disease (principal); N18.9 Chronic kidney disease, unspecified; E78.2 Mixed hyperlipidemia; E10.22 Type 1 diabetes mellitus with diabetic chronic kidney disease; D59.0 Drug-induced autoimmune hemolytic anemia; B25.9 Cytomegaloviral disease, unspecified; E83.40 Disorders of magnesium metabolism, unspecified; T86.10 Unspecified complication of kidney transplant; Z94.0 Kidney transplant status; Z79.899 Other long term (current) drug therapy

== ENCOUNTER → 2017-03-21 | Outpatient (CLI) | payer MEDICARE ==
[2017-03-21 08:11] LABS: BASO % 0.7 % (0.0-1.0); EOS # 0.1 10*3/uL (0.0-0.4); EOS % 2.8 % (1.0-4.0); HEMATOCRIT 28.7 % (37.0-47.0); HEMOGLOBIN 8.9 g/dl (12.0-16.0); LYMPH # 0.7 10*3/uL (1.3-4.4); LYMPH % 16.6 % (27.0-41.0); MEAN CELL VOLUME 96.6 fl (81.0-99.0); MEAN PLATELET VOLUME 10.5 fl (9.6-12.3); MONO # 0.2 10*3/uL (0.1-1.0); MONO % 4.4 % (3.0-9.0); NEUT # 3.2 10*3/uL (2.3-7.9); NEUT % 75.3 % (47.0-73.0); PLATELET COUNT AUTOMATED 221 10*3/uL (130-400); RED BLOOD COUNT 2.97 10*6/uL (4.10-5.10); RED CELL DISTRI WIDTH 19.3 % (0-14.5); WHITE BLOOD COUNT 4.3 10*3/uL (4.8-10.8)
[2017-03-21 08:51] LABS: ALBUMIN 3.1 gm/dl (3.1-4.5); BILIRUBIN, TOTAL 0.3 mg/dl (0.2-1.0); MAGNESIUM 1.7 mg/dL (1.5-2.1); PHOSPHOROUS 2.6 mg/dL (2.5-4.9); POTASSIUM 5.4 mmol/L (3.5-5.1); TOTAL PROTEIN 6.5 gm/dL (6.4-8.2); URIC ACID 5.7 mg/dL (2.6-6.0)
[2017-03-21 09:25] LABS: PTH INTACT 100.6 pg/mL (14.0-72.0); VITAMIN D, 25-HYDROXY 34.7 ng/mL (30-100)
== END | disposition home or self-care (01) ==
LOC: LAB 07:47
PROVIDERS: Surgery
DX: I12.9 Hypertensive chronic kidney disease with stage 1 through stage 4 chronic kidney disease, or unspecified chronic kidney disease (principal); E10.22 Type 1 diabetes mellitus with diabetic chronic kidney disease; E78.2 Mixed hyperlipidemia; N18.9 Chronic kidney disease, unspecified; E83.39 Other disorders of phosphorus metabolism; D59.0 Drug-induced autoimmune hemolytic anemia; B25.9 Cytomegaloviral disease, unspecified; T86.10 Unspecified complication of kidney transplant; E83.40 Disorders of magnesium metabolism, unspecified; Z79.899 Other long term (current) drug therapy; Z94.0 Kidney transplant status

== ENCOUNTER → 2017-03-28 | Outpatient (CLI) | payer MEDICARE ==
[2017-03-28 08:44] LABS: BASO % 0.8 % (0.0-1.0); EOS # 0.2 10*3/uL (0.0-0.4); HEMOGLOBIN 8.6 g/dl (12.0-16.0); LYMPH % 19.2 % (27.0-41.0); MEAN CELL VOLUME 96.8 fl (81.0-99.0); MEAN CORPUSCULAR HGB 30.8 pg (27.0-31.0); MEAN CORPUSCULAR HGB CONC 31.9 g/dl (33.0-37.0); MEAN PLATELET VOLUME 10.8 fl (9.6-12.3); MONO # 0.3 10*3/uL (0.1-1.0); MONO % 5.3 % (3.0-9.0); NEUT # 3.6 10*3/uL (2.3-7.9); NEUT % 70.3 % (47.0-73.0); PLATELET COUNT AUTOMATED 194 10*3/uL (130-400); RED BLOOD COUNT 2.79 10*6/uL (4.10-5.10); RED CELL DISTRI WIDTH 18.9 % (0-14.5); WHITE BLOOD COUNT 5.1 10*3/uL (4.8-10.8)
[2017-03-28 08:57] LABS: MAGNESIUM 1.8 mg/dL (1.5-2.1); POTASSIUM 5.2 mmol/L (3.5-5.1); TOTAL PROTEIN 6.4 gm/dL (6.4-8.2)
[2017-03-28 09:03] LABS: ALBUMIN 3.3 gm/dl (3.1-4.5); BILIRUBIN, TOTAL 0.3 mg/dl (0.2-1.0); PHOSPHOROUS 3.3 mg/dL (2.5-4.9); URIC ACID 6.4 mg/dL (2.6-6.0)
== END | disposition home or self-care (01) ==
LOC: LAB 07:53
PROVIDERS: Surgery
DX: I12.9 Hypertensive chronic kidney disease with stage 1 through stage 4 chronic kidney disease, or unspecified chronic kidney disease (principal); N18.9 Chronic kidney disease, unspecified; B25.9 Cytomegaloviral disease, unspecified; E83.40 Disorders of magnesium metabolism, unspecified; D59.0 Drug-induced autoimmune hemolytic anemia; E78.2 Mixed hyperlipidemia; E10.9 Type 1 diabetes mellitus without complications; T86.40 Unspecified complication of liver transplant; Z79.899 Other long term (current) drug therapy; Z94.0 Kidney transplant status

== ENCOUNTER → 2017-04-04 | Outpatient (CLI) | payer MEDICARE ==
[2017-04-04 08:16] LABS: BASO % 0.4 % (0.0-1.0); EOS # 0.3 10*3/uL (0.0-0.4); EOS % 5.2 % (1.0-4.0); HEMATOCRIT 28.4 % (37.0-47.0); LYMPH % 19.7 % (27.0-41.0); MEAN CELL VOLUME 96.9 fl (81.0-99.0); MEAN CORPUSCULAR HGB 30.7 pg (27.0-31.0); MEAN CORPUSCULAR HGB CONC 31.7 g/dl (33.0-37.0); MEAN PLATELET VOLUME 10.9 fl (9.6-12.3); MONO # 0.3 10*3/uL (0.1-1.0); MONO % 5.2 % (3.0-9.0); NEUT # 3.3 10*3/uL (2.3-7.9); NEUT % 69.3 % (47.0-73.0); PLATELET COUNT AUTOMATED 188 10*3/uL (130-400); RED BLOOD COUNT 2.93 10*6/uL (4.10-5.10); RED CELL DISTRI WIDTH 18.7 % (0-14.5); WHITE BLOOD COUNT 4.8 10*3/uL (4.8-10.8)
[2017-04-04 08:49] LABS: ALBUMIN 3.6 gm/dl (3.1-4.5); MAGNESIUM 1.9 mg/dL (1.5-2.1); PHOSPHOROUS 2.9 mg/dL (2.5-4.9); POTASSIUM 5.7 mmol/L (3.5-5.1); TOTAL PROTEIN 6.7 gm/dL (6.4-8.2)
[2017-04-04 08:51] LABS: BILIRUBIN, TOTAL 0.3 mg/dl (0.2-1.0); URIC ACID 7.1 mg/dL (2.6-6.0)
== END | disposition home or self-care (01) ==
LOC: LAB 07:45
PROVIDERS: Surgery
DX: I12.9 Hypertensive chronic kidney disease with stage 1 through stage 4 chronic kidney disease, or unspecified chronic kidney disease (principal); E10.22 Type 1 diabetes mellitus with diabetic chronic kidney disease; N18.9 Chronic kidney disease, unspecified; D59.0 Drug-induced autoimmune hemolytic anemia; B25.9 Cytomegaloviral disease, unspecified; E83.40 Disorders of magnesium metabolism, unspecified; B33.8 Other specified viral diseases; E78.2 Mixed hyperlipidemia; T86.10 Unspecified complication of kidney transplant; Z79.899 Other long term (current) drug therapy; Z94.0 Kidney transplant status

== ENCOUNTER → 2017-04-11 | Outpatient (CLI) | payer MEDICARE ==
[2017-04-11 09:12] LABS: ALBUMIN 3.3 gm/dl (3.1-4.5); BILIRUBIN, TOTAL 0.3 mg/dl (0.2-1.0); MAGNESIUM 2.1 mg/dL (1.5-2.1); PHOSPHOROUS 3.2 mg/dL (2.5-4.9); POTASSIUM 5.5 mmol/L (3.5-5.1); TOTAL PROTEIN 6.8 gm/dL (6.4-8.2); URIC ACID 7.6 mg/dL (2.6-6.0)
[2017-04-11 09:28] LABS: BASO % 0.4 % (0.0-1.0); EOS # 0.2 10*3/uL (0.0-0.4); EOS % 4.3 % (1.0-4.0); HEMATOCRIT 27.8 % (37.0-47.0); HEMOGLOBIN 8.7 g/dl (12.0-16.0); LYMPH # 0.8 10*3/uL (1.3-4.4); LYMPH % 16.1 % (27.0-41.0); MEAN CELL VOLUME 98.2 fl (81.0-99.0); MEAN CORPUSCULAR HGB 30.7 pg (27.0-31.0); MEAN CORPUSCULAR HGB CONC 31.3 g/dl (33.0-37.0); MEAN PLATELET VOLUME 10.9 fl (9.6-12.3); MONO # 0.2 10*3/uL (0.1-1.0); MONO % 3.5 % (3.0-9.0); NEUT # 3.9 10*3/uL (2.3-7.9); NEUT % 75.3 % (47.0-73.0); PLATELET COUNT AUTOMATED 172 10*3/uL (130-400); RED BLOOD COUNT 2.83 10*6/uL (4.10-5.10); RED CELL DISTRI WIDTH 17.4 % (0-14.5); WHITE BLOOD COUNT 5.2 10*3/uL (4.8-10.8)
== END | disposition home or self-care (01) ==
LOC: LAB 07:48
PROVIDERS: Surgery
DX: I12.9 Hypertensive chronic kidney disease with stage 1 through stage 4 chronic kidney disease, or unspecified chronic kidney disease (principal); E10.22 Type 1 diabetes mellitus with diabetic chronic kidney disease; N18.9 Chronic kidney disease, unspecified; D59.0 Drug-induced autoimmune hemolytic anemia; E83.40 Disorders of magnesium metabolism, unspecified; E78.2 Mixed hyperlipidemia; B25.9 Cytomegaloviral disease, unspecified; T86.10 Unspecified complication of kidney transplant; Z94.0 Kidney transplant status; Z79.899 Other long term (current) drug therapy

== ENCOUNTER → 2017-04-15 | Outpatient (CLI) | payer MEDICARE ==
[2017-04-15 08:39] LABS: BASO % 0.6 % (0.0-1.0); EOS # 0.3 10*3/uL (0.0-0.4); EOS % 5.6 % (1.0-4.0); HEMATOCRIT 27.2 % (37.0-47.0); HEMOGLOBIN 8.6 g/dl (12.0-16.0); LYMPH % 20.8 % (27.0-41.0); MEAN CELL VOLUME 97.5 fl (81.0-99.0); MEAN CORPUSCULAR HGB 30.8 pg (27.0-31.0); MEAN CORPUSCULAR HGB CONC 31.6 g/dl (33.0-37.0); MEAN PLATELET VOLUME 10.9 fl (9.6-12.3); MONO # 0.2 10*3/uL (0.1-1.0); MONO % 4.1 % (3.0-9.0); NEUT # 3.2 10*3/uL (2.3-7.9); NEUT % 68.5 % (47.0-73.0); PLATELET COUNT AUTOMATED 178 10*3/uL (130-400); RED BLOOD COUNT 2.79 10*6/uL (4.10-5.10); RED CELL DISTRI WIDTH 17.2 % (0-14.5); WHITE BLOOD COUNT 4.6 10*3/uL (4.8-10.8)
[2017-04-15 09:05] LABS: MAGNESIUM 1.9 mg/dL (1.5-2.1); PHOSPHOROUS 3.1 mg/dL (2.5-4.9); POTASSIUM 5.2 mmol/L (3.5-5.1); URIC ACID 7.6 mg/dL (2.6-6.0)
== END | disposition home or self-care (01) ==
LOC: LAB 07:48
PROVIDERS: Surgery
DX: I12.9 Hypertensive chronic kidney disease with stage 1 through stage 4 chronic kidney disease, or unspecified chronic kidney disease (principal); E10.22 Type 1 diabetes mellitus with diabetic chronic kidney disease; N18.9 Chronic kidney disease, unspecified; B25.9 Cytomegaloviral disease, unspecified; D59.0 Drug-induced autoimmune hemolytic anemia; E83.40 Disorders of magnesium metabolism, unspecified; E78.2 Mixed hyperlipidemia; Z94.0 Kidney transplant status; Z79.899 Other long term (current) drug therapy

== ENCOUNTER → 2017-04-18 | Outpatient (CLI) | payer MEDICARE ==
[2017-04-18 08:17] LABS: BASO % 0.7 % (0.0-1.0); EOS # 0.2 10*3/uL (0.0-0.4); EOS % 4.8 % (1.0-4.0); HEMATOCRIT 26.9 % (37.0-47.0); HEMOGLOBIN 8.6 g/dl (12.0-16.0); LYMPH # 0.8 10*3/uL (1.3-4.4); LYMPH % 19.1 % (27.0-41.0); MEAN CELL VOLUME 98.2 fl (81.0-99.0); MEAN CORPUSCULAR HGB 31.4 pg (27.0-31.0); MEAN PLATELET VOLUME 10.5 fl (9.6-12.3); MONO # 0.2 10*3/uL (0.1-1.0); MONO % 3.9 % (3.0-9.0); NEUT % 71.3 % (47.0-73.0); PLATELET COUNT AUTOMATED 184 10*3/uL (130-400); RED BLOOD COUNT 2.74 10*6/uL (4.10-5.10); RED CELL DISTRI WIDTH 16.8 % (0-14.5); WHITE BLOOD COUNT 4.1 10*3/uL (4.8-10.8)
[2017-04-18 08:39] LABS: ALBUMIN 3.2 gm/dl (3.1-4.5); BILIRUBIN, TOTAL 0.3 mg/dl (0.2-1.0); MAGNESIUM 1.7 mg/dL (1.5-2.1); PHOSPHOROUS 3.5 mg/dL (2.5-4.9); POTASSIUM 4.8 mmol/L (3.5-5.1); TOTAL PROTEIN 6.4 gm/dL (6.4-8.2); URIC ACID 7.4 mg/dL (2.6-6.0)
== END | disposition home or self-care (01) ==
LOC: LAB 07:44
PROVIDERS: Surgery
DX: I12.9 Hypertensive chronic kidney disease with stage 1 through stage 4 chronic kidney disease, or unspecified chronic kidney disease (principal); N18.9 Chronic kidney disease, unspecified; E10.22 Type 1 diabetes mellitus with diabetic chronic kidney disease; D50.9 Iron deficiency anemia, unspecified; B25.9 Cytomegaloviral disease, unspecified; E83.40 Disorders of magnesium metabolism, unspecified; T86.10 Unspecified complication of kidney transplant; Z79.899 Other long term (current) drug therapy; Z94.0 Kidney transplant status

== ENCOUNTER → 2017-04-25 | Outpatient (CLI) | payer MEDICARE ==
[2017-04-25 08:40] LABS: BASO % 0.5 % (0.0-1.0); BILIRUBIN NEGATIVE (NEGATIVE); BLOOD NEGATIVE (NEGATIVE); CLARITY SL CLOUDY (CLEAR); COLOR YELLOW (YELLOW); EOS # 0.2 10*3/uL (0.0-0.4); EOS % 4.6 % (1.0-4.0); GLUCOSE NEGATIVE (NEGATIVE); HEMATOCRIT 28.2 % (37.0-47.0); HEMOGLOBIN 8.8 g/dl (12.0-16.0); KETONE NEGATIVE (NEGATIVE); LEUKO ESTERASE NEGATIVE (NEGATIVE); LYMPH # 0.7 10*3/uL (1.3-4.4); LYMPH % 17.9 % (27.0-41.0); MEAN CELL VOLUME 97.9 fl (81.0-99.0); MEAN CORPUSCULAR HGB 30.6 pg (27.0-31.0); MEAN CORPUSCULAR HGB CONC 31.2 g/dl (33.0-37.0); MONO # 0.1 10*3/uL (0.1-1.0); MONO % 3.1 % (3.0-9.0); NEUT % 73.4 % (47.0-73.0); NITRITE NEGATIVE (NEGATIVE); PH 5.5 (5.0-9.0); PLATELET COUNT AUTOMATED 192 10*3/uL (130-400); PROTEIN NEGATIVE (NEGATIVE); RED BLOOD COUNT 2.88 10*6/uL (4.10-5.10); RED CELL DISTRI WIDTH 16.2 % (0-14.5); SPECIFIC GRAVITY <= 1.005 (1.005-1.030); UROBILINOGEN 0.2 E.U./dl (0.2-1.0); WHITE BLOOD COUNT 4.1 10*3/uL (4.8-10.8)
[2017-04-25 08:46] LABS: BACTERIA TRACE
[2017-04-25 08:47] LABS: URINE REFLEX COMMENT NO (NO); URINE TP/CRE RATIO 0.5 (<0.21)
[2017-04-25 08:56] LABS: ALBUMIN 3.4 gm/dl (3.1-4.5); BILIRUBIN, TOTAL 0.3 mg/dl (0.2-1.0); MAGNESIUM 1.9 mg/dL (1.5-2.1); PHOSPHOROUS 3.3 mg/dL (2.5-4.9); POTASSIUM 4.2 mmol/L (3.5-5.1); TOTAL PROTEIN 6.6 gm/dL (6.4-8.2); URIC ACID 6.4 mg/dL (2.6-6.0)
[2017-04-25 09:47] LABS: HEMOGLOBIN A1c < 3.5 % (4.8-5.6)
[2017-04-25 09:59] LABS: FERRITIN 438.4 ng/mL (10.0-291.0)
== END | disposition home or self-care (01) ==
LOC: LAB 08:01
PROVIDERS: Surgery
DX: I12.9 Hypertensive chronic kidney disease with stage 1 through stage 4 chronic kidney disease, or unspecified chronic kidney disease (principal); E11.22 Type 2 diabetes mellitus with diabetic chronic kidney disease; N18.6 End stage renal disease; D63.1 Anemia in chronic kidney disease; B25.9 Cytomegaloviral disease, unspecified; E21.1 Secondary hyperparathyroidism, not elsewhere classified; E83.40 Disorders of magnesium metabolism, unspecified; E10.9 Type 1 diabetes mellitus without complications; E78.2 Mixed hyperlipidemia; T86.10 Unspecified complication of kidney transplant; D59.0 Drug-induced autoimmune hemolytic anemia; Z79.899 Other long term (current) drug therapy; Z94.0 Kidney transplant status

== ENCOUNTER → 2017-05-02 | Outpatient (CLI) | payer MEDICARE ==
[2017-05-02 08:08] LABS: BASO % 0.5 % (0.0-1.0); EOS # 0.1 10*3/uL (0.0-0.4); EOS % 2.8 % (1.0-4.0); HEMATOCRIT 28.5 % (37.0-47.0); LYMPH # 0.7 10*3/uL (1.3-4.4); LYMPH % 18.3 % (27.0-41.0); MEAN CELL VOLUME 97.6 fl (81.0-99.0); MEAN CORPUSCULAR HGB 30.8 pg (27.0-31.0); MEAN CORPUSCULAR HGB CONC 31.6 g/dl (33.0-37.0); MONO # 0.2 10*3/uL (0.1-1.0); MONO % 4.5 % (3.0-9.0); NEUT # 2.9 10*3/uL (2.3-7.9); NEUT % 73.6 % (47.0-73.0); PLATELET COUNT AUTOMATED 191 10*3/uL (130-400); RED BLOOD COUNT 2.92 10*6/uL (4.10-5.10); RED CELL DISTRI WIDTH 15.3 % (0-14.5)
[2017-05-02 08:45] LABS: ALBUMIN 3.3 gm/dl (3.1-4.5); BILIRUBIN, TOTAL 0.3 mg/dl (0.2-1.0); MAGNESIUM 1.7 mg/dL (1.5-2.1); PHOSPHOROUS 2.6 mg/dL (2.5-4.9); POTASSIUM 4.6 mmol/L (3.5-5.1); TOTAL PROTEIN 6.4 gm/dL (6.4-8.2); URIC ACID 6.3 mg/dL (2.6-6.0)
== END | disposition home or self-care (01) ==
LOC: LAB 07:45
PROVIDERS: Surgery
DX: I12.9 Hypertensive chronic kidney disease with stage 1 through stage 4 chronic kidney disease, or unspecified chronic kidney disease (principal); D59.0 Drug-induced autoimmune hemolytic anemia; B25.9 Cytomegaloviral disease, unspecified; E83.40 Disorders of magnesium metabolism, unspecified; E10.9 Type 1 diabetes mellitus without complications; B33.8 Other specified viral diseases; Z79.899 Other long term (current) drug therapy; E78.2 Mixed hyperlipidemia; T86.10 Unspecified complication of kidney transplant; Z94.0 Kidney transplant status

== ENCOUNTER → 2017-05-09 | Outpatient (CLI) | payer MEDICARE ==
[2017-05-09 08:53] LABS: BASO % 0.3 % (0.0-1.0); EOS # 0.2 10*3/uL (0.0-0.4); HEMATOCRIT 28.1 % (37.0-47.0); HEMOGLOBIN 8.8 g/dl (12.0-16.0); LYMPH # 0.9 10*3/uL (1.3-4.4); LYMPH % 14.9 % (27.0-41.0); MEAN CELL VOLUME 97.9 fl (81.0-99.0); MEAN CORPUSCULAR HGB 30.7 pg (27.0-31.0); MEAN CORPUSCULAR HGB CONC 31.3 g/dl (33.0-37.0); MEAN PLATELET VOLUME 11.1 fl (9.6-12.3); MONO # 0.4 10*3/uL (0.1-1.0); MONO % 6.5 % (3.0-9.0); NEUT # 4.7 10*3/uL (2.3-7.9); NEUT % 74.8 % (47.0-73.0); PLATELET COUNT AUTOMATED 223 10*3/uL (130-400); RED BLOOD COUNT 2.87 10*6/uL (4.10-5.10); RED CELL DISTRI WIDTH 14.8 % (0-14.5); WHITE BLOOD COUNT 6.3 10*3/uL (4.8-10.8)
[2017-05-09 09:10] LABS: ALBUMIN 3.1 gm/dl (3.1-4.5); MAGNESIUM 1.8 mg/dL (1.5-2.1); PHOSPHOROUS 2.4 mg/dL (2.5-4.9); POTASSIUM 4.5 mmol/L (3.5-5.1); TOTAL PROTEIN 6.4 gm/dL (6.4-8.2)
[2017-05-09 09:23] LABS: BILIRUBIN, TOTAL 0.2 mg/dl (0.2-1.0); URIC ACID 6.3 mg/dL (2.6-6.0)
== END | disposition home or self-care (01) ==
LOC: LAB 07:56
PROVIDERS: Surgery
DX: D59.0 Drug-induced autoimmune hemolytic anemia (principal); I12.9 Hypertensive chronic kidney disease with stage 1 through stage 4 chronic kidney disease, or unspecified chronic kidney disease; N18.9 Chronic kidney disease, unspecified; E10.22 Type 1 diabetes mellitus with diabetic chronic kidney disease; B25.9 Cytomegaloviral disease, unspecified; E83.40 Disorders of magnesium metabolism, unspecified; E78.2 Mixed hyperlipidemia; T86.10 Unspecified complication of kidney transplant; Z79.899 Other long term (current) drug therapy; Z94.0 Kidney transplant status

== ENCOUNTER → 2017-05-23 | Outpatient (CLI) | payer MEDICARE ==
[2017-05-23 08:20] LABS: BASO % 0.2 % (0.0-1.0); EOS # 0.2 10*3/uL (0.0-0.4); EOS % 4.8 % (1.0-4.0); HEMATOCRIT 27.2 % (37.0-47.0); HEMOGLOBIN 8.7 g/dl (12.0-16.0); LYMPH # 0.7 10*3/uL (1.3-4.4); LYMPH % 15.1 % (27.0-41.0); MEAN CELL VOLUME 97.1 fl (81.0-99.0); MEAN CORPUSCULAR HGB 31.1 pg (27.0-31.0); MONO # 0.3 10*3/uL (0.1-1.0); MONO % 5.7 % (3.0-9.0); NEUT # 3.4 10*3/uL (2.3-7.9); NEUT % 73.8 % (47.0-73.0); PLATELET COUNT AUTOMATED 228 10*3/uL (130-400); RED CELL DISTRI WIDTH 14.4 % (0-14.5); WHITE BLOOD COUNT 4.6 10*3/uL (4.8-10.8)
[2017-05-23 08:42] LABS: ALBUMIN 3.1 gm/dl (3.1-4.5); CREATININE 1.33 mg/dL (0.55-1.02); MAGNESIUM 1.9 mg/dL (1.5-2.1); PHOSPHOROUS 2.5 mg/dL (2.5-4.9); POTASSIUM 4.2 mmol/L (3.5-5.1); TOTAL PROTEIN 6.2 gm/dL (6.4-8.2); URIC ACID 6.5 mg/dL (2.6-6.0)
== END | disposition home or self-care (01) ==
LOC: LAB 07:42
PROVIDERS: Internal Medicine Nephrology
DX: E83.42 Hypomagnesemia (principal); B25.9 Cytomegaloviral disease, unspecified; D64.9 Anemia, unspecified; E83.39 Other disorders of phosphorus metabolism; Z94.0 Kidney transplant status

== ENCOUNTER → 2017-05-31 | Outpatient (CLI) | payer MEDICARE ==
[2017-05-31 08:16] LABS: BASO % 0.4 % (0.0-1.0); EOS # 0.2 10*3/uL (0.0-0.4); EOS % 4.4 % (1.0-4.0); HEMATOCRIT 26.4 % (37.0-47.0); HEMOGLOBIN 8.2 g/dl (12.0-16.0); LYMPH # 0.8 10*3/uL (1.3-4.4); LYMPH % 15.4 % (27.0-41.0); MEAN CELL VOLUME 97.4 fl (81.0-99.0); MEAN CORPUSCULAR HGB 30.3 pg (27.0-31.0); MEAN CORPUSCULAR HGB CONC 31.1 g/dl (33.0-37.0); MEAN PLATELET VOLUME 11.3 fl (9.6-12.3); NEUT # 3.2 10*3/uL (2.3-7.9); NEUT % 60.4 % (47.0-73.0); PLATELET COUNT AUTOMATED 199 10*3/uL (130-400); RED BLOOD COUNT 2.71 10*6/uL (4.10-5.10); RED CELL DISTRI WIDTH 13.9 % (0-14.5); WHITE BLOOD COUNT 5.2 10*3/uL (4.8-10.8)
[2017-05-31 08:50] LABS: ALBUMIN 2.9 gm/dl (3.1-4.5); PHOSPHOROUS 2.8 mg/dL (2.5-4.9); POTASSIUM 4.7 mmol/L (3.5-5.1)
[2017-05-31 09:05] LABS: CREATININE 1.37 mg/dL (0.55-1.02); MAGNESIUM 1.7 mg/dL (1.5-2.1); TOTAL PROTEIN 6.2 gm/dL (6.4-8.2); URIC ACID 6.5 mg/dL (2.6-6.0)
[2017-06-02 21:05] LABS: CMV QNT Negative (Negative)
== END | disposition home or self-care (01) ==
LOC: LAB 07:36
PROVIDERS: Internal Medicine Nephrology
DX: B25.9 Cytomegaloviral disease, unspecified (principal); D64.9 Anemia, unspecified; E83.42 Hypomagnesemia; Z94.0 Kidney transplant status

== ENCOUNTER → 2017-06-13 | Outpatient (CLI) | payer MEDICARE ==
[2017-06-13 08:50] LABS: BASO % 0.5 % (0.0-1.0); EOS # 0.3 10*3/uL (0.0-0.4); EOS % 7.1 % (1.0-4.0); HEMATOCRIT 27.1 % (37.0-47.0); HEMOGLOBIN 8.3 g/dl (12.0-16.0); LYMPH # 0.9 10*3/uL (1.3-4.4); LYMPH % 20.5 % (27.0-41.0); MEAN CELL VOLUME 95.8 fl (81.0-99.0); MEAN CORPUSCULAR HGB 29.3 pg (27.0-31.0); MEAN CORPUSCULAR HGB CONC 30.6 g/dl (33.0-37.0); MEAN PLATELET VOLUME 10.9 fl (9.6-12.3); MONO # 0.8 10*3/uL (0.1-1.0); MONO % 17.6 % (3.0-9.0); NEUT # 2.3 10*3/uL (2.3-7.9); NEUT % 54.1 % (47.0-73.0); PLATELET COUNT AUTOMATED 223 10*3/uL (130-400); RED BLOOD COUNT 2.83 10*6/uL (4.10-5.10); RED CELL DISTRI WIDTH 13.7 % (0-14.5); WHITE BLOOD COUNT 4.3 10*3/uL (4.8-10.8)
[2017-06-13 08:55] LABS: IRON 29 ug/dL (50-170); TOTAL IRON BINDING CAPACITY 173 ug/dl (250-450)
[2017-06-13 09:02] LABS: ALBUMIN 2.8 gm/dl (3.1-4.5); CREATININE 1.4 mg/dL (0.55-1.02); MAGNESIUM 1.8 mg/dL (1.5-2.1); PHOSPHOROUS 2.6 mg/dL (2.5-4.9); POTASSIUM 3.9 mmol/L (3.5-5.1); URIC ACID 6.6 mg/dL (2.6-6.0)
[2017-06-13 10:12] LABS: FERRITIN 359.8 ng/mL (10.0-291.0)
== END | disposition home or self-care (01) ==
LOC: LAB 07:46
PROVIDERS: Internal Medicine; Internal Medicine Nephrology
DX: D64.9 Anemia, unspecified (principal); B25.9 Cytomegaloviral disease, unspecified; E83.42 Hypomagnesemia; D63.8 Anemia in other chronic diseases classified elsewhere; Z94.0 Kidney transplant status

== ENCOUNTER → 2017-06-27 | Outpatient (CLI) | payer MEDICARE ==
[2017-06-27 08:04] LABS: BASO % 0.3 % (0.0-1.0); EOS # 0.3 10*3/uL (0.0-0.4); HEMATOCRIT 30.7 % (37.0-47.0); HEMOGLOBIN 9.2 g/dl (12.0-16.0); LYMPH # 0.8 10*3/uL (1.3-4.4); MEAN CELL VOLUME 95.9 fl (81.0-99.0); MEAN CORPUSCULAR HGB 28.8 pg (27.0-31.0); MEAN PLATELET VOLUME 10.5 fl (9.6-12.3); MONO # 0.4 10*3/uL (0.1-1.0); NEUT # 2.4 10*3/uL (2.3-7.9); NEUT % 59.4 % (47.0-73.0); PLATELET COUNT AUTOMATED 183 10*3/uL (130-400); RED CELL DISTRI WIDTH 13.9 % (0-14.5)
[2017-06-27 08:39] LABS: ALBUMIN 3.2 gm/dl (3.1-4.5); CREATININE 1.56 mg/dL (0.55-1.02); MAGNESIUM 2.1 mg/dL (1.5-2.1); PHOSPHOROUS 3.4 mg/dL (2.5-4.9); POTASSIUM 5.2 mmol/L (3.5-5.1); TOTAL PROTEIN 6.4 gm/dL (6.4-8.2); URIC ACID 7.5 mg/dL (2.6-6.0)
[2017-06-29 21:05] LABS: CMV QNT Negative (Negative)
== END | disposition home or self-care (01) ==
LOC: LAB 07:37
PROVIDERS: Internal Medicine Nephrology
DX: E83.42 Hypomagnesemia (principal); D64.9 Anemia, unspecified; B25.9 Cytomegaloviral disease, unspecified; Z94.0 Kidney transplant status

== ENCOUNTER → 2017-07-04 | Outpatient (CLI) | payer MEDICARE ==
[2017-07-04 08:30] LABS: BASO % 0.2 % (0.0-1.0); EOS # 0.3 10*3/uL (0.0-0.4); EOS % 7.2 % (1.0-4.0); HEMATOCRIT 30.6 % (37.0-47.0); HEMOGLOBIN 9.5 g/dl (12.0-16.0); LYMPH # 0.7 10*3/uL (1.3-4.4); LYMPH % 14.5 % (27.0-41.0); MEAN CELL VOLUME 94.4 fl (81.0-99.0); MEAN CORPUSCULAR HGB 29.3 pg (27.0-31.0); MONO # 0.5 10*3/uL (0.1-1.0); MONO % 10.7 % (3.0-9.0); NEUT # 3.2 10*3/uL (2.3-7.9); NEUT % 67.2 % (47.0-73.0); PLATELET COUNT AUTOMATED 187 10*3/uL (130-400); RED BLOOD COUNT 3.24 10*6/uL (4.10-5.10); RED CELL DISTRI WIDTH 14.2 % (0-14.5); WHITE BLOOD COUNT 4.8 10*3/uL (4.8-10.8)
[2017-07-04 09:03] LABS: ALBUMIN 3.2 gm/dl (3.1-4.5); CREATININE 1.59 mg/dL (0.55-1.02); TOTAL PROTEIN 6.4 gm/dL (6.4-8.2); URIC ACID 7.9 mg/dL (2.6-6.0)
[2017-07-04 09:07] LABS: PHOSPHOROUS 3.6 mg/dL (2.5-4.9)
== END | disposition home or self-care (01) ==
LOC: LAB 07:42
PROVIDERS: Internal Medicine Nephrology
DX: E83.42 Hypomagnesemia (principal); D64.9 Anemia, unspecified; Z94.0 Kidney transplant status

== ENCOUNTER → 2017-08-23 | Outpatient (CLI) | payer MEDICARE ==
[2017-08-23 08:41] LABS: BASO % 0.2 % (0.0-1.0); EOS # 0.3 10*3/uL (0.0-0.4); EOS % 6.2 % (1.0-4.0); HEMATOCRIT 31.5 % (37.0-47.0); HEMOGLOBIN 9.6 g/dl (12.0-16.0); LYMPH # 0.7 10*3/uL (1.3-4.4); LYMPH % 15.2 % (27.0-41.0); MEAN CELL VOLUME 91.8 fl (81.0-99.0); MEAN CORPUSCULAR HGB CONC 30.5 g/dl (33.0-37.0); MEAN PLATELET VOLUME 11.6 fl (9.6-12.3); MONO # 0.5 10*3/uL (0.1-1.0); MONO % 11.7 % (3.0-9.0); NEUT # 2.9 10*3/uL (2.3-7.9); NEUT % 66.5 % (47.0-73.0); PLATELET COUNT AUTOMATED 175 10*3/uL (130-400); RED BLOOD COUNT 3.43 10*6/uL (4.10-5.10); RED CELL DISTRI WIDTH 15.4 % (0-14.5); WHITE BLOOD COUNT 4.4 10*3/uL (4.8-10.8)
[2017-08-23 08:45] LABS: URINE CREATININE RANDOM 67.5 mg/dL
[2017-08-23 09:01] LABS: ALBUMIN 3.5 gm/dl (3.1-4.5); CREATININE 1.54 mg/dL (0.55-1.02); PHOSPHOROUS 3.6 mg/dL (2.5-4.9); TOTAL PROTEIN 6.9 gm/dL (6.4-8.2); URIC ACID 7.4 mg/dL (2.6-6.0)
== END | disposition home or self-care (01) ==
LOC: LAB 07:38
PROVIDERS: Internal Medicine Nephrology
DX: D89.9 Disorder involving the immune mechanism, unspecified (principal); D64.9 Anemia, unspecified; E83.42 Hypomagnesemia; Z94.0 Kidney transplant status

== ENCOUNTER → 2017-09-13 | Outpatient (CLI) | payer MEDICARE ==
[2017-09-13 08:07] LABS: BASO % 0.3 % (0.0-1.0); EOS # 0.2 10*3/uL (0.0-0.4); HEMATOCRIT 29.5 % (37.0-47.0); HEMOGLOBIN 9.3 g/dl (12.0-16.0); LYMPH # 0.6 10*3/uL (1.3-4.4); LYMPH % 18.9 % (27.0-41.0); MEAN CELL VOLUME 89.4 fl (81.0-99.0); MEAN CORPUSCULAR HGB 28.2 pg (27.0-31.0); MEAN CORPUSCULAR HGB CONC 31.5 g/dl (33.0-37.0); MEAN PLATELET VOLUME 10.5 fl (9.6-12.3); MONO # 0.4 10*3/uL (0.1-1.0); MONO % 13.9 % (3.0-9.0); NEUT # 1.8 10*3/uL (2.3-7.9); NEUT % 59.6 % (47.0-73.0); PLATELET COUNT AUTOMATED 168 10*3/uL (130-400); RED CELL DISTRI WIDTH 14.6 % (0-14.5)
[2017-09-13 08:39] LABS: ALBUMIN 3.3 gm/dl (3.1-4.5); CREATININE 1.46 mg/dL (0.55-1.02); POTASSIUM 4.7 mmol/L (3.5-5.1); URIC ACID 7.3 mg/dL (2.6-6.0)
[2017-09-13 08:42] LABS: PHOSPHOROUS 3.3 mg/dL (2.5-4.9); TOTAL PROTEIN 6.3 gm/dL (6.4-8.2)
== END | disposition home or self-care (01) ==
LOC: LAB 07:40
PROVIDERS: Internal Medicine Nephrology
DX: D64.9 Anemia, unspecified (principal); E83.42 Hypomagnesemia; D89.9 Disorder involving the immune mechanism, unspecified; Z94.0 Kidney transplant status

== ENCOUNTER → 2017-10-17 | Outpatient (CLI) | payer MEDICARE ==
[2017-10-17 08:18] LABS: BASO % 0.3 % (0.0-1.0); EOS # 0.2 10*3/uL (0.0-0.4); EOS % 5.1 % (1.0-4.0); HEMATOCRIT 30.9 % (37.0-47.0); HEMOGLOBIN 9.7 g/dl (12.0-16.0); LYMPH # 0.6 10*3/uL (1.3-4.4); LYMPH % 20.7 % (27.0-41.0); MEAN CELL VOLUME 90.1 fl (81.0-99.0); MEAN CORPUSCULAR HGB 28.3 pg (27.0-31.0); MEAN CORPUSCULAR HGB CONC 31.4 g/dl (33.0-37.0); MEAN PLATELET VOLUME 10.9 fl (9.6-12.3); MONO # 0.4 10*3/uL (0.1-1.0); NEUT # 1.7 10*3/uL (2.3-7.9); NEUT % 58.6 % (47.0-73.0); PLATELET COUNT AUTOMATED 183 10*3/uL (130-400); RED BLOOD COUNT 3.43 10*6/uL (4.10-5.10); RED CELL DISTRI WIDTH 14.6 % (0-14.5); WHITE BLOOD COUNT 2.9 10*3/uL (4.8-10.8)
[2017-10-17 08:45] LABS: PHOSPHOROUS 3.2 mg/dL (2.5-4.9); URIC ACID 6.7 mg/dL (2.6-6.0)
== END | disposition home or self-care (01) ==
LOC: LAB 07:49
PROVIDERS: Internal Medicine Nephrology
DX: D89.9 Disorder involving the immune mechanism, unspecified (principal); D64.9 Anemia, unspecified; E83.42 Hypomagnesemia; Z94.0 Kidney transplant status

== ENCOUNTER → 2017-10-21 | Outpatient (CLI) | payer MEDICARE ==
[2017-10-21 08:54] LABS: ALBUMIN 3.4 gm/dl (3.1-4.5); CREATININE 1.57 mg/dL (0.55-1.02); POTASSIUM 5.3 mmol/L (3.5-5.1); TOTAL PROTEIN 6.7 gm/dL (6.4-8.2)
== END | disposition home or self-care (01) ==
LOC: LAB 01:01
PROVIDERS: Internal Medicine Nephrology
DX: D89.9 Disorder involving the immune mechanism, unspecified (principal); Z94.0 Kidney transplant status

== ENCOUNTER → 2017-10-31 | Outpatient (CLI) | payer MEDICARE ==
[2017-10-31 08:16] LABS: BASO % 0.3 % (0.0-1.0); EOS # 0.1 10*3/uL (0.0-0.4); EOS % 3.8 % (1.0-4.0); HEMOGLOBIN 9.7 g/dl (12.0-16.0); LYMPH # 0.7 10*3/uL (1.3-4.4); LYMPH % 17.9 % (27.0-41.0); MEAN CELL VOLUME 90.9 fl (81.0-99.0); MEAN CORPUSCULAR HGB 28.4 pg (27.0-31.0); MEAN CORPUSCULAR HGB CONC 31.3 g/dl (33.0-37.0); MEAN PLATELET VOLUME 10.7 fl (9.6-12.3); MONO # 0.6 10*3/uL (0.1-1.0); MONO % 15.1 % (3.0-9.0); NEUT # 2.3 10*3/uL (2.3-7.9); NEUT % 62.6 % (47.0-73.0); PLATELET COUNT AUTOMATED 176 10*3/uL (130-400); RED BLOOD COUNT 3.41 10*6/uL (4.10-5.10); RED CELL DISTRI WIDTH 14.4 % (0-14.5); WHITE BLOOD COUNT 3.6 10*3/uL (4.8-10.8)
[2017-10-31 08:52] LABS: ALBUMIN 3.5 gm/dl (3.1-4.5); CREATININE 1.45 mg/dL (0.55-1.02); PHOSPHOROUS 3.5 mg/dL (2.5-4.9); POTASSIUM 4.4 mmol/L (3.5-5.1); TOTAL PROTEIN 6.5 gm/dL (6.4-8.2); URIC ACID 6.6 mg/dL (2.6-6.0)
== END | disposition home or self-care (01) ==
LOC: LAB 07:41
PROVIDERS: Internal Medicine Nephrology
DX: D89.9 Disorder involving the immune mechanism, unspecified (principal); D64.9 Anemia, unspecified; E83.42 Hypomagnesemia; Z94.0 Kidney transplant status

== ENCOUNTER → 2017-11-14 | Outpatient (CLI) | payer MEDICARE ==
[2017-11-14 08:19] LABS: BASO % 0.2 % (0.0-1.0); EOS # 0.2 10*3/uL (0.0-0.4); EOS % 4.9 % (1.0-4.0); HEMATOCRIT 33.6 % (37.0-47.0); HEMOGLOBIN 10.5 g/dl (12.0-16.0); LYMPH # 0.7 10*3/uL (1.3-4.4); MEAN CELL VOLUME 90.8 fl (81.0-99.0); MEAN CORPUSCULAR HGB 28.4 pg (27.0-31.0); MEAN CORPUSCULAR HGB CONC 31.3 g/dl (33.0-37.0); MEAN PLATELET VOLUME 10.6 fl (9.6-12.3); MONO # 0.4 10*3/uL (0.1-1.0); NEUT % 68.4 % (47.0-73.0); PLATELET COUNT AUTOMATED 178 10*3/uL (130-400); RED CELL DISTRI WIDTH 14.5 % (0-14.5); WHITE BLOOD COUNT 4.3 10*3/uL (4.8-10.8)
[2017-11-14 08:37] LABS: IRON 62 ug/dL (50-170); TOTAL IRON BINDING CAPACITY 227 ug/dl (250-450)
[2017-11-14 09:18] LABS: FERRITIN 516.2 ng/mL (10.0-291.0); PTH INTACT 127.8 pg/mL (14.0-72.0); VITAMIN D, 25-HYDROXY 25.1 ng/mL (30-100)
[2017-11-14 13:45] LABS: BILIRUBIN NEGATIVE (NEGATIVE); BLOOD NEGATIVE (NEGATIVE); CLARITY CLEAR (CLEAR); COLOR YELLOW (YELLOW); GLUCOSE NEGATIVE (NEGATIVE); KETONE NEGATIVE (NEGATIVE); LEUKO ESTERASE TRACE (NEGATIVE); NITRITE NEGATIVE (NEGATIVE); PH 5.5 (5.0-9.0); UROBILINOGEN 0.2 E.U./dl (0.2-1.0)
[2017-11-14 13:51] LABS: URINE CREATININE RANDOM 69.9 mg/dL
[2017-11-14 14:06] LABS: BACTERIA 2+; RBC 0-2 rbc/hpf (0-2)
== END | disposition home or self-care (01) ==
LOC: LAB 07:38
PROVIDERS: Internal Medicine Nephrology
DX: E11.29 Type 2 diabetes mellitus with other diabetic kidney complication (principal); D63.1 Anemia in chronic kidney disease; E21.1 Secondary hyperparathyroidism, not elsewhere classified; N18.6 End stage renal disease; Z94.0 Kidney transplant status; R80.9 Proteinuria, unspecified

== ENCOUNTER → 2017-12-13 | Outpatient (CLI) | payer MEDICARE ==
[2017-12-13 08:15] LABS: BASO % 0.3 % (0.0-1.0); EOS # 0.1 10*3/uL (0.0-0.4); EOS % 4.1 % (1.0-4.0); HEMATOCRIT 32.4 % (37.0-47.0); HEMOGLOBIN 9.9 g/dl (12.0-16.0); LYMPH # 0.6 10*3/uL (1.3-4.4); LYMPH % 17.5 % (27.0-41.0); MEAN CELL VOLUME 90.8 fl (81.0-99.0); MEAN CORPUSCULAR HGB 27.7 pg (27.0-31.0); MEAN CORPUSCULAR HGB CONC 30.6 g/dl (33.0-37.0); MEAN PLATELET VOLUME 11.3 fl (9.6-12.3); MONO # 0.6 10*3/uL (0.1-1.0); MONO % 17.8 % (3.0-9.0); PLATELET COUNT AUTOMATED 161 10*3/uL (130-400); RED BLOOD COUNT 3.57 10*6/uL (4.10-5.10); WHITE BLOOD COUNT 3.4 10*3/uL (4.8-10.8)
[2017-12-13 08:46] LABS: ALBUMIN 3.6 gm/dl (3.1-4.5); CREATININE 1.65 mg/dL (0.55-1.02); POTASSIUM 5.9 mmol/L (3.5-5.1)
[2017-12-13 08:49] LABS: PHOSPHOROUS 3.9 mg/dL (2.5-4.9); TOTAL PROTEIN 6.8 gm/dL (6.4-8.2); URIC ACID 7.5 mg/dL (2.6-6.0)
== END | disposition home or self-care (01) ==
LOC: LAB 07:41
PROVIDERS: Internal Medicine Nephrology
DX: E83.42 Hypomagnesemia (principal); E83.39 Other disorders of phosphorus metabolism; D64.9 Anemia, unspecified; D89.9 Disorder involving the immune mechanism, unspecified; Z94.0 Kidney transplant status

== ENCOUNTER → 2017-12-22 | Outpatient (CLI) | payer MEDICARE ==
[2017-12-22 07:53] LABS: EOS # 0.1 10*3/uL (0.0-0.4); EOS % 3.9 % (1.0-4.0); HEMATOCRIT 32.4 % (37.0-47.0); LYMPH # 0.5 10*3/uL (1.3-4.4); LYMPH % 14.6 % (27.0-41.0); MEAN CELL VOLUME 89.8 fl (81.0-99.0); MEAN CORPUSCULAR HGB 27.7 pg (27.0-31.0); MEAN CORPUSCULAR HGB CONC 30.9 g/dl (33.0-37.0); MONO # 0.5 10*3/uL (0.1-1.0); MONO % 15.5 % (3.0-9.0); NEUT # 2.2 10*3/uL (2.3-7.9); NEUT % 65.7 % (47.0-73.0); PLATELET COUNT AUTOMATED 162 10*3/uL (130-400); RED BLOOD COUNT 3.61 10*6/uL (4.10-5.10); WHITE BLOOD COUNT 3.4 10*3/uL (4.8-10.8)
[2017-12-22 08:22] LABS: ALBUMIN 3.5 gm/dl (3.1-4.5); CREATININE 1.39 mg/dL (0.55-1.02); PHOSPHOROUS 3.5 mg/dL (2.5-4.9); POTASSIUM 3.8 mmol/L (3.5-5.1); TOTAL PROTEIN 6.3 gm/dL (6.4-8.2); URIC ACID 7.4 mg/dL (2.6-6.0)
== END | disposition home or self-care (01) ==
LOC: LAB 07:28
PROVIDERS: Internal Medicine Nephrology
DX: E83.39 Other disorders of phosphorus metabolism (principal); D89.9 Disorder involving the immune mechanism, unspecified; D64.9 Anemia, unspecified; Z94.0 Kidney transplant status

== ENCOUNTER → 2018-01-17 | Outpatient (CLI) | payer MEDICARE ==
[2018-01-17 08:20] LABS: BASO % 0.3 % (0.0-1.0); EOS # 0.2 10*3/uL (0.0-0.4); EOS % 5.5 % (1.0-4.0); HEMOGLOBIN 10.6 g/dl (12.0-16.0); LYMPH # 0.5 10*3/uL (1.3-4.4); LYMPH % 17.5 % (27.0-41.0); MEAN CELL VOLUME 91.9 fl (81.0-99.0); MEAN CORPUSCULAR HGB 27.8 pg (27.0-31.0); MEAN CORPUSCULAR HGB CONC 30.3 g/dl (33.0-37.0); MEAN PLATELET VOLUME 11.1 fl (9.6-12.3); MONO # 0.5 10*3/uL (0.1-1.0); MONO % 15.3 % (3.0-9.0); NEUT # 1.9 10*3/uL (2.3-7.9); NEUT % 61.4 % (47.0-73.0); PLATELET COUNT AUTOMATED 173 10*3/uL (130-400); RED BLOOD COUNT 3.81 10*6/uL (4.10-5.10); RED CELL DISTRI WIDTH 13.9 % (0-14.5); WHITE BLOOD COUNT 3.1 10*3/uL (4.8-10.8)
[2018-01-17 08:40] LABS: ALBUMIN 3.6 gm/dl (3.1-4.5); CREATININE 1.4 mg/dL (0.55-1.02); PHOSPHOROUS 4.1 mg/dL (2.5-4.9); POTASSIUM 4.7 mmol/L (3.5-5.1); TOTAL PROTEIN 6.8 gm/dL (6.4-8.2); URIC ACID 6.8 mg/dL (2.6-6.0)
== END | disposition home or self-care (01) ==
LOC: LAB 07:42
PROVIDERS: Internal Medicine Nephrology
DX: D89.9 Disorder involving the immune mechanism, unspecified (principal); D64.9 Anemia, unspecified; E83.39 Other disorders of phosphorus metabolism; Z94.0 Kidney transplant status

== ENCOUNTER → 2018-01-31 | Outpatient (CLI) | payer MEDICARE ==
[2018-01-31 08:26] LABS: BASO % 0.3 % (0.0-1.0); EOS # 0.1 10*3/uL (0.0-0.4); EOS % 4.4 % (1.0-4.0); HEMATOCRIT 32.8 % (37.0-47.0); HEMOGLOBIN 10.1 g/dl (12.0-16.0); LYMPH # 0.5 10*3/uL (1.3-4.4); LYMPH % 16.5 % (27.0-41.0); MEAN CELL VOLUME 90.9 fl (81.0-99.0); MEAN CORPUSCULAR HGB CONC 30.8 g/dl (33.0-37.0); MEAN PLATELET VOLUME 11.6 fl (9.6-12.3); MONO # 0.4 10*3/uL (0.1-1.0); MONO % 14.8 % (3.0-9.0); NEUT # 1.9 10*3/uL (2.3-7.9); NEUT % 63.3 % (47.0-73.0); PLATELET COUNT AUTOMATED 165 10*3/uL (130-400); RED BLOOD COUNT 3.61 10*6/uL (4.10-5.10); RED CELL DISTRI WIDTH 13.7 % (0-14.5)
[2018-01-31 08:58] LABS: ALBUMIN 3.6 gm/dl (3.1-4.5); CREATININE 1.3 mg/dL (0.55-1.02); POTASSIUM 4.8 mmol/L (3.5-5.1); TOTAL PROTEIN 6.6 gm/dL (6.4-8.2); URIC ACID 6.9 mg/dL (2.6-6.0)
== END | disposition home or self-care (01) ==
LOC: LAB 07:39
PROVIDERS: Internal Medicine Nephrology
DX: D64.9 Anemia, unspecified (principal); E83.89 Other disorders of mineral metabolism; D89.9 Disorder involving the immune mechanism, unspecified; Z94.0 Kidney transplant status

== ENCOUNTER → 2018-03-02 | Outpatient (CLI) | payer MEDICARE | END | disposition home or self-care (01) | LOC: MAMMO 14:05 | DX: Z12.31 Encounter for screening mammogram for malignant neoplasm of breast (principal) ==

== ENCOUNTER → 2018-03-13 | Outpatient (CLI) | payer MEDICARE ==
[2018-03-13 09:07] LABS: BASO % 0.3 % (0.0-1.0); EOS # 0.2 10*3/uL (0.0-0.4); EOS % 5.4 % (1.0-4.0); HEMATOCRIT 32.1 % (37.0-47.0); HEMOGLOBIN 9.9 g/dl (12.0-16.0); LYMPH # 0.5 10*3/uL (1.3-4.4); MEAN CELL VOLUME 91.7 fl (81.0-99.0); MEAN CORPUSCULAR HGB 28.3 pg (27.0-31.0); MEAN CORPUSCULAR HGB CONC 30.8 g/dl (33.0-37.0); MEAN PLATELET VOLUME 11.8 fl (9.6-12.3); MONO # 0.4 10*3/uL (0.1-1.0); MONO % 13.2 % (3.0-9.0); NEUT % 64.1 % (47.0-73.0); PLATELET COUNT AUTOMATED 163 10*3/uL (130-400); WHITE BLOOD COUNT 3.2 10*3/uL (4.8-10.8)
[2018-03-13 09:34] LABS: ALBUMIN 3.4 gm/dl (3.1-4.5); POTASSIUM 4.7 mmol/L (3.5-5.1)
[2018-03-13 09:41] LABS: CREATININE 1.24 mg/dL (0.55-1.02); PHOSPHOROUS 3.9 mg/dL (2.5-4.9); TOTAL PROTEIN 6.4 gm/dL (6.4-8.2); URIC ACID 7.2 mg/dL (2.6-6.0)
== END ==
LOC: LAB 07:50
PROVIDERS: Internal Medicine Nephrology
DX: D89.9 Disorder involving the immune mechanism, unspecified (principal); D64.9 Anemia, unspecified; E83.42 Hypomagnesemia; Z94.0 Kidney transplant status

== ENCOUNTER → 2018-04-10 | Outpatient (CLI) | payer MEDICARE ==
[2018-04-10 08:31] LABS: BASO % 0.3 % (0.0-1.0); EOS # 0.2 10*3/uL (0.0-0.4); EOS % 5.9 % (1.0-4.0); HEMATOCRIT 34.1 % (37.0-47.0); HEMOGLOBIN 10.4 g/dl (12.0-16.0); LYMPH # 0.6 10*3/uL (1.3-4.4); LYMPH % 20.8 % (27.0-41.0); MEAN CELL VOLUME 90.9 fl (81.0-99.0); MEAN CORPUSCULAR HGB 27.7 pg (27.0-31.0); MEAN CORPUSCULAR HGB CONC 30.5 g/dl (33.0-37.0); MEAN PLATELET VOLUME 10.9 fl (9.6-12.3); MONO # 0.5 10*3/uL (0.1-1.0); MONO % 15.6 % (3.0-9.0); NEUT # 1.6 10*3/uL (2.3-7.9); NEUT % 57.1 % (47.0-73.0); PLATELET COUNT AUTOMATED 148 10*3/uL (130-400); RED BLOOD COUNT 3.75 10*6/uL (4.10-5.10); RED CELL DISTRI WIDTH 14.6 % (0-14.5); WHITE BLOOD COUNT 2.9 10*3/uL (4.8-10.8)
[2018-04-10 09:05] LABS: ALBUMIN 3.7 gm/dl (3.1-4.5); CREATININE 1.25 mg/dL (0.55-1.02); PHOSPHOROUS 4.1 mg/dL (2.5-4.9); POTASSIUM 4.6 mmol/L (3.5-5.1); TOTAL PROTEIN 6.7 gm/dL (6.4-8.2); URIC ACID 6.9 mg/dL (2.6-6.0)
== END | disposition home or self-care (01) ==
LOC: LAB 07:50
PROVIDERS: Internal Medicine Nephrology
DX: D64.9 Anemia, unspecified (principal); D89.9 Disorder involving the immune mechanism, unspecified; E83.39 Other disorders of phosphorus metabolism; Z94.0 Kidney transplant status

== ENCOUNTER → 2018-06-01 | Outpatient (CLI) | payer MEDICARE ==
[2018-06-01 08:37] LABS: BILIRUBIN NEGATIVE (NEGATIVE); BLOOD NEGATIVE (NEGATIVE); CLARITY CLEAR (CLEAR); COLOR YELLOW (YELLOW); GLUCOSE NEGATIVE (NEGATIVE); KETONE NEGATIVE (NEGATIVE); LEUKO ESTERASE TRACE (NEGATIVE); NITRITE NEGATIVE (NEGATIVE); PH 5.5 (5.0-9.0); SPECIFIC GRAVITY <= 1.005 (1.005-1.030); UROBILINOGEN 0.2 E.U./dl (0.2-1.0)
[2018-06-01 08:50] LABS: URINE CREATININE RANDOM 28.2 mg/dL
[2018-06-01 08:51] LABS: IRON 92 ug/dL (50-170); TOTAL IRON BINDING CAPACITY 205 ug/dl (250-450)
[2018-06-01 08:53] LABS: ALBUMIN 3.6 gm/dl (3.1-4.5); CREATININE 1.28 mg/dL (0.55-1.02); PHOSPHOROUS 4.2 mg/dL (2.5-4.9); TOTAL PROTEIN 6.6 gm/dL (6.4-8.2); URIC ACID 7.4 mg/dL (2.6-6.0)
[2018-06-01 08:59] LABS: RBC 0-2 rbc/hpf (0-2)
[2018-06-01 09:13] LABS: BASO % 0.4 % (0.0-1.0); EOS # 0.2 10*3/uL (0.0-0.4); EOS % 6.9 % (1.0-4.0); HEMATOCRIT 33.1 % (37.0-47.0); LYMPH # 0.5 10*3/uL (1.3-4.4); LYMPH % 19.5 % (27.0-41.0); MEAN CELL VOLUME 92.5 fl (81.0-99.0); MEAN CORPUSCULAR HGB 27.9 pg (27.0-31.0); MEAN CORPUSCULAR HGB CONC 30.2 g/dl (33.0-37.0); MEAN PLATELET VOLUME 11.6 fl (9.6-12.3); MONO # 0.3 10*3/uL (0.1-1.0); NEUT # 1.6 10*3/uL (2.3-7.9); NEUT % 59.8 % (47.0-73.0); PLATELET COUNT AUTOMATED 152 10*3/uL (130-400); RED BLOOD COUNT 3.58 10*6/uL (4.10-5.10); RED CELL DISTRI WIDTH 13.9 % (0-14.5); WHITE BLOOD COUNT 2.6 10*3/uL (4.8-10.8)
[2018-06-01 09:33] LABS: VITAMIN D, 25-HYDROXY 30.1 ng/mL (30-100)
[2018-06-01 09:34] LABS: FERRITIN 442.6 ng/mL (10.0-291.0); PTH INTACT 143.8 pg/mL (18.5-88.0)
== END | disposition home or self-care (01) ==
LOC: LAB 08:03
PROVIDERS: Internal Medicine Nephrology
DX: T86.10 Unspecified complication of kidney transplant (principal); E11.29 Type 2 diabetes mellitus with other diabetic kidney complication; E21.1 Secondary hyperparathyroidism, not elsewhere classified; E11.22 Type 2 diabetes mellitus with diabetic chronic kidney disease; D63.1 Anemia in chronic kidney disease; N18.6 End stage renal disease; D89.9 Disorder involving the immune mechanism, unspecified; Z94.0 Kidney transplant status

== ENCOUNTER → 2018-07-17 | Outpatient (CLI) | payer MEDICARE ==
[2018-07-17 08:43] LABS: BASO % 0.3 % (0.0-1.0); EOS # 0.2 10*3/uL (0.0-0.4); HEMATOCRIT 33.9 % (37.0-47.0); HEMOGLOBIN 10.3 g/dl (12.0-16.0); LYMPH # 0.6 10*3/uL (1.3-4.4); LYMPH % 18.5 % (27.0-41.0); MEAN CELL VOLUME 93.6 fl (81.0-99.0); MEAN CORPUSCULAR HGB 28.5 pg (27.0-31.0); MEAN CORPUSCULAR HGB CONC 30.4 g/dl (33.0-37.0); MEAN PLATELET VOLUME 11.4 fl (9.6-12.3); MONO # 0.4 10*3/uL (0.1-1.0); MONO % 13.8 % (3.0-9.0); NEUT # 1.9 10*3/uL (2.3-7.9); NEUT % 62.1 % (47.0-73.0); PLATELET COUNT AUTOMATED 142 10*3/uL (130-400); RED BLOOD COUNT 3.62 10*6/uL (4.10-5.10); RED CELL DISTRI WIDTH 14.7 % (0-14.5)
[2018-07-17 09:14] LABS: ALBUMIN 3.6 gm/dl (3.1-4.5); CREATININE 1.12 mg/dL (0.55-1.02); PHOSPHOROUS 4.1 mg/dL (2.5-4.9); POTASSIUM 4.6 mmol/L (3.5-5.1); TOTAL PROTEIN 6.6 gm/dL (6.4-8.2); URIC ACID 6.5 mg/dL (2.6-6.0)
== END | disposition home or self-care (01) ==
LOC: LAB 07:51
PROVIDERS: Internal Medicine Nephrology
DX: T86.10 Unspecified complication of kidney transplant (principal); D89.9 Disorder involving the immune mechanism, unspecified; Z94.0 Kidney transplant status; Z86.39 Personal history of other endocrine, nutritional and metabolic disease; Y83.8 Other surgical procedures as the cause of abnormal reaction of the patient, or of later complication, without mention of misadventure at the time of the procedure; Y92.89 Other specified places as the place of occurrence of the external cause

== ENCOUNTER → 2018-08-14 | Outpatient (CLI) | payer MEDICARE ==
[2018-08-14 08:43] LABS: BASO % 0.3 % (0.0-1.0); EOS # 0.1 10*3/uL (0.0-0.4); EOS % 3.9 % (1.0-4.0); HEMOGLOBIN 10.6 g/dl (12.0-16.0); LYMPH # 0.5 10*3/uL (1.3-4.4); LYMPH % 15.5 % (27.0-41.0); MEAN CELL VOLUME 93.2 fl (81.0-99.0); MEAN CORPUSCULAR HGB CONC 31.2 g/dl (33.0-37.0); MEAN PLATELET VOLUME 11.1 fl (9.6-12.3); MONO # 0.4 10*3/uL (0.1-1.0); MONO % 12.5 % (3.0-9.0); NEUT # 2.3 10*3/uL (2.3-7.9); NEUT % 67.5 % (47.0-73.0); PLATELET COUNT AUTOMATED 169 10*3/uL (130-400); RED BLOOD COUNT 3.65 10*6/uL (4.10-5.10); RED CELL DISTRI WIDTH 14.3 % (0-14.5); WHITE BLOOD COUNT 3.4 10*3/uL (4.8-10.8)
[2018-08-14 09:12] LABS: ALBUMIN 3.7 gm/dl (3.1-4.5); CREATININE 1.24 mg/dL (0.55-1.02); PHOSPHOROUS 4.2 mg/dL (2.5-4.9); POTASSIUM 4.9 mmol/L (3.5-5.1); TOTAL PROTEIN 6.7 gm/dL (6.4-8.2); URIC ACID 6.6 mg/dL (2.6-6.0)
== END | disposition home or self-care (01) ==
LOC: LAB 08:00
PROVIDERS: Internal Medicine Nephrology
DX: Z13.0 Encounter for screening for diseases of the blood and blood-forming organs and certain disorders involving the immune mechanism (principal); D89.9 Disorder involving the immune mechanism, unspecified; T86.10 Unspecified complication of kidney transplant; Z86.39 Personal history of other endocrine, nutritional and metabolic disease; Z94.0 Kidney transplant status

== ENCOUNTER → 2018-10-09 | Outpatient (CLI) | payer MEDICARE ==
[2018-10-09 08:02] LABS: BASO % 0.3 % (0.0-1.0); EOS # 0.3 10*3/uL (0.0-0.4); EOS % 7.9 % (1.0-4.0); HEMATOCRIT 34.8 % (37.0-47.0); HEMOGLOBIN 10.9 g/dl (12.0-16.0); LYMPH # 0.5 10*3/uL (1.3-4.4); LYMPH % 15.1 % (27.0-41.0); MEAN CELL VOLUME 92.3 fl (81.0-99.0); MEAN CORPUSCULAR HGB 28.9 pg (27.0-31.0); MEAN CORPUSCULAR HGB CONC 31.3 g/dl (33.0-37.0); MEAN PLATELET VOLUME 9.7 fl (9.6-12.3); MONO # 0.5 10*3/uL (0.1-1.0); MONO % 15.1 % (3.0-9.0); NEUT # 1.9 10*3/uL (2.3-7.9); PLATELET COUNT AUTOMATED 173 10*3/uL (130-400); RED BLOOD COUNT 3.77 10*6/uL (4.10-5.10); WHITE BLOOD COUNT 3.2 10*3/uL (4.8-10.8)
[2018-10-09 08:32] LABS: ALBUMIN 3.6 gm/dl (3.1-4.5); CREATININE 1.33 mg/dL (0.55-1.02); PHOSPHOROUS 3.9 mg/dL (2.5-4.9); POTASSIUM 5.7 mmol/L (3.5-5.1); TOTAL PROTEIN 6.8 gm/dL (6.4-8.2); URIC ACID 6.7 mg/dL (2.6-6.0)
== END | disposition home or self-care (01) ==
LOC: LAB 07:43
PROVIDERS: Internal Medicine Nephrology
DX: T86.10 Unspecified complication of kidney transplant (principal); D89.9 Disorder involving the immune mechanism, unspecified; Z94.0 Kidney transplant status; Y83.0 Surgical operation with transplant of whole organ as the cause of abnormal reaction of the patient, or of later complication, without mention of misadventure at the time of the procedure

== ENCOUNTER → 2018-11-29 | Outpatient (CLI) | payer MEDICARE ==
[2018-11-29 08:12] LABS: BILIRUBIN NEGATIVE (NEGATIVE); BLOOD NEGATIVE (NEGATIVE); CLARITY CLEAR (CLEAR); COLOR YELLOW (YELLOW); GLUCOSE NEGATIVE (NEGATIVE); KETONE NEGATIVE (NEGATIVE); LEUKO ESTERASE NEGATIVE (NEGATIVE); NITRITE NEGATIVE (NEGATIVE); PH 5.5 (5.0-9.0); UROBILINOGEN 0.2 E.U./dl (0.2-1.0)
[2018-11-29 09:59] LABS: WBC 0-2 wbc/hpf (0-5)
[2018-11-29 10:00] LABS: BACTERIA 1+
== END | disposition home or self-care (01) ==
LOC: LAB 07:45
PROVIDERS: Internal Medicine Nephrology
DX: D89.9 Disorder involving the immune mechanism, unspecified (principal); R82.90 Unspecified abnormal findings in urine; Z94.0 Kidney transplant status

== ENCOUNTER → 2019-01-08 | Outpatient (CLI) | payer MEDICARE ==
[2019-01-08 08:43] LABS: BASO % 0.3 % (0.0-1.0); EOS # 0.1 10*3/uL (0.0-0.4); EOS % 2.4 % (1.0-4.0); HEMATOCRIT 35.6 % (37.0-47.0); HEMOGLOBIN 11.2 g/dl (12.0-16.0); LYMPH # 0.5 10*3/uL (1.3-4.4); LYMPH % 15.7 % (27.0-41.0); MEAN CELL VOLUME 92.7 fl (81.0-99.0); MEAN CORPUSCULAR HGB 29.2 pg (27.0-31.0); MEAN CORPUSCULAR HGB CONC 31.5 g/dl (33.0-37.0); MEAN PLATELET VOLUME 10.4 fl (9.6-12.3); MONO # 0.4 10*3/uL (0.1-1.0); MONO % 13.3 % (3.0-9.0); NEUT # 2.3 10*3/uL (2.3-7.9); PLATELET COUNT AUTOMATED 152 10*3/uL (130-400); RED BLOOD COUNT 3.84 10*6/uL (4.10-5.10); RED CELL DISTRI WIDTH 14.2 % (0-14.5); WHITE BLOOD COUNT 3.3 10*3/uL (4.8-10.8)
[2019-01-08 08:57] LABS: ALBUMIN 3.4 gm/dl (3.1-4.5); POTASSIUM 5.2 mmol/L (3.5-5.1)
[2019-01-08 09:01] LABS: CREATININE 1.16 mg/dL (0.55-1.02); PHOSPHOROUS 4.2 mg/dL (2.5-4.9); TOTAL PROTEIN 6.6 gm/dL (6.4-8.2); URIC ACID 6.4 mg/dL (2.6-6.0)
== END | disposition home or self-care (01) ==
LOC: LAB 07:37
PROVIDERS: Internal Medicine Nephrology
DX: D89.9 Disorder involving the immune mechanism, unspecified (principal); Z94.0 Kidney transplant status

== ENCOUNTER → 2019-05-07 | Outpatient (CLI) | payer MEDICARE ==
[2019-05-07 08:17] LABS: BASO % 0.3 % (0.0-1.0); EOS # 0.1 10*3/uL (0.0-0.4); EOS % 3.5 % (1.0-4.0); HEMATOCRIT 37.1 % (37.0-47.0); HEMOGLOBIN 11.6 g/dl (12.0-16.0); LYMPH # 0.5 10*3/uL (1.3-4.4); LYMPH % 16.6 % (27.0-41.0); MEAN CELL VOLUME 93.7 fl (81.0-99.0); MEAN CORPUSCULAR HGB 29.3 pg (27.0-31.0); MEAN CORPUSCULAR HGB CONC 31.3 g/dl (33.0-37.0); MEAN PLATELET VOLUME 11.4 fl (9.6-12.3); MONO # 0.4 10*3/uL (0.1-1.0); MONO % 13.1 % (3.0-9.0); NEUT # 2.1 10*3/uL (2.3-7.9); NEUT % 66.2 % (47.0-73.0); PLATELET COUNT AUTOMATED 148 10*3/uL (130-400); RED BLOOD COUNT 3.96 10*6/uL (4.10-5.10); RED CELL DISTRI WIDTH 14.2 % (0-14.5); WHITE BLOOD COUNT 3.1 10*3/uL (4.8-10.8)
[2019-05-07 08:24] LABS: BILIRUBIN NEGATIVE (NEGATIVE); BLOOD NEGATIVE (NEGATIVE); CLARITY CLEAR (CLEAR); COLOR YELLOW (YELLOW); GLUCOSE NEGATIVE (NEGATIVE); KETONE NEGATIVE (NEGATIVE); LEUKO ESTERASE NEGATIVE (NEGATIVE); NITRITE NEGATIVE (NEGATIVE); PH 5.5 (5.0-9.0); UROBILINOGEN 0.2 E.U./dl (0.2-1.0)
[2019-05-07 08:33] LABS: RBC 0-2 rbc/hpf (0-2)
[2019-05-07 08:46] LABS: IRON 101 ug/dL (50-170); TOTAL IRON BINDING CAPACITY 219 ug/dl (250-450)
[2019-05-07 08:50] LABS: ALBUMIN 3.7 gm/dl (3.1-4.5); CREATININE 1.16 mg/dL (0.55-1.02); PHOSPHOROUS 3.7 mg/dL (2.5-4.9); POTASSIUM 4.9 mmol/L (3.5-5.1); TOTAL PROTEIN 6.7 gm/dL (6.4-8.2); URIC ACID 6.5 mg/dL (2.6-6.0)
[2019-05-07 09:51] LABS: PTH INTACT 117.1 pg/mL (18.5-88.0); VITAMIN D, 25-HYDROXY 29.2 ng/mL (30-100)
== END | disposition home or self-care (01) ==
LOC: LAB 07:45
PROVIDERS: Internal Medicine Nephrology
DX: E11.29 Type 2 diabetes mellitus with other diabetic kidney complication (principal); D63.1 Anemia in chronic kidney disease; N18.6 End stage renal disease; E21.1 Secondary hyperparathyroidism, not elsewhere classified; D89.9 Disorder involving the immune mechanism, unspecified; Z94.0 Kidney transplant status

== ENCOUNTER → 2019-07-09 | Outpatient (CLI) | payer MEDICARE ==
[2019-07-09 08:03] LABS: BASO % 0.3 % (0.0-1.0); EOS # 0.1 10*3/uL (0.0-0.4); EOS % 3.1 % (1.0-4.0); HEMATOCRIT 36.8 % (37.0-47.0); HEMOGLOBIN 11.4 g/dl (12.0-16.0); LYMPH # 0.5 10*3/uL (1.3-4.4); LYMPH % 15.7 % (27.0-41.0); MEAN CELL VOLUME 95.3 fl (81.0-99.0); MEAN CORPUSCULAR HGB 29.5 pg (27.0-31.0); MEAN PLATELET VOLUME 10.4 fl (9.6-12.3); MONO # 0.4 10*3/uL (0.1-1.0); NEUT # 1.9 10*3/uL (2.3-7.9); NEUT % 65.9 % (47.0-73.0); PLATELET COUNT AUTOMATED 167 10*3/uL (130-400); RED BLOOD COUNT 3.86 10*6/uL (4.10-5.10); RED CELL DISTRI WIDTH 14.5 % (0-14.5); WHITE BLOOD COUNT 2.9 10*3/uL (4.8-10.8)
[2019-07-09 08:29] LABS: ALBUMIN 3.7 gm/dl (3.1-4.5); CREATININE 1.12 mg/dL (0.55-1.02); PHOSPHOROUS 4.1 mg/dL (2.5-4.9); POTASSIUM 5.2 mmol/L (3.5-5.1); TOTAL PROTEIN 6.8 gm/dL (6.4-8.2); URIC ACID 7.1 mg/dL (2.6-6.0)
== END | disposition home or self-care (01) ==
LOC: LAB 07:35
PROVIDERS: Internal Medicine Nephrology
DX: D89.9 Disorder involving the immune mechanism, unspecified (principal); Z94.0 Kidney transplant status

== ENCOUNTER → 2019-09-07 | Outpatient (CLI) | payer MEDICARE ==
[2019-09-07 08:02] LABS: EOS # 0.1 10*3/uL (0.0-0.4); EOS % 2.4 % (1.0-4.0); HEMATOCRIT 36.8 % (37.0-47.0); HEMOGLOBIN 11.5 g/dl (12.0-16.0); LYMPH # 0.5 10*3/uL (1.3-4.4); LYMPH % 16.3 % (27.0-41.0); MEAN CELL VOLUME 95.8 fl (81.0-99.0); MEAN CORPUSCULAR HGB 29.9 pg (27.0-31.0); MEAN CORPUSCULAR HGB CONC 31.3 g/dl (33.0-37.0); MONO # 0.4 10*3/uL (0.1-1.0); MONO % 13.9 % (3.0-9.0); NEUT # 1.9 10*3/uL (2.3-7.9); NEUT % 67.4 % (47.0-73.0); PLATELET COUNT AUTOMATED 145 10*3/uL (130-400); RED BLOOD COUNT 3.84 10*6/uL (4.10-5.10); RED CELL DISTRI WIDTH 13.9 % (0-14.5); WHITE BLOOD COUNT 2.9 10*3/uL (4.8-10.8)
[2019-09-07 08:30] LABS: ALBUMIN 3.5 gm/dl (3.1-4.5); CREATININE 1.12 mg/dL (0.55-1.02); PHOSPHOROUS 3.8 mg/dL (2.5-4.9); POTASSIUM 4.8 mmol/L (3.5-5.1); TOTAL PROTEIN 6.7 gm/dL (6.4-8.2); URIC ACID 6.7 mg/dL (2.6-6.0)
== END | disposition home or self-care (01) ==
LOC: LAB 07:27
PROVIDERS: Internal Medicine Nephrology
DX: D89.9 Disorder involving the immune mechanism, unspecified (principal); Z94.0 Kidney transplant status

== ENCOUNTER → 2019-10-30 | Outpatient (CLI) | payer MEDICARE ==
[2019-10-30 11:22] LABS: URINE CREATININE RANDOM 32.1 mg/dL
== END | disposition home or self-care (01) ==
LOC: LAB 00:45 → US 09:30
PROVIDERS: Internal Medicine Nephrology
DX: Z13.220 Encounter for screening for lipoid disorders (principal); T86.10 Unspecified complication of kidney transplant; D89.9 Disorder involving the immune mechanism, unspecified; Z94.0 Kidney transplant status

== ENCOUNTER → 2019-11-05 | Outpatient (CLI) | payer MEDICARE | END | disposition home or self-care (01) | LOC: MAMMO 11:00 | DX: Z12.31 Encounter for screening mammogram for malignant neoplasm of breast (principal) ==

== ENCOUNTER → 2020-03-10 | Outpatient (CLI) | payer MEDICARE ==
[2020-03-10 08:22] LABS: BASO % 0.5 % (0.0-1.0); EOS # 0.1 10*3/uL (0.0-0.4); EOS % 6.1 % (1.0-4.0); HEMATOCRIT 34.1 % (37.0-47.0); LYMPH # 0.4 10*3/uL (1.3-4.4); LYMPH % 20.1 % (27.0-41.0); MEAN CELL VOLUME 99.4 fl (81.0-99.0); MEAN CORPUSCULAR HGB 31.2 pg (27.0-31.0); MEAN CORPUSCULAR HGB CONC 31.4 g/dl (33.0-37.0); MEAN PLATELET VOLUME 11.4 fl (9.6-12.3); MONO # 0.4 10*3/uL (0.1-1.0); MONO % 16.8 % (3.0-9.0); NEUT # 1.2 10*3/uL (2.3-7.9); PLATELET COUNT AUTOMATED 128 10*3/uL (130-400); RED BLOOD COUNT 3.43 10*6/uL (4.10-5.10); RED CELL DISTRI WIDTH 14.5 % (0-14.5); WHITE BLOOD COUNT 2.1 10*3/uL (4.8-10.8)
[2020-03-10 08:46] LABS: ALBUMIN 3.3 gm/dl (3.1-4.5); CREATININE 1.22 mg/dL (0.55-1.02); POTASSIUM 4.6 mmol/L (3.5-5.1); TOTAL PROTEIN 6.4 gm/dL (6.4-8.2); URIC ACID 6.8 mg/dL (2.6-6.0)
== END | disposition home or self-care (01) ==
LOC: LAB 07:51
PROVIDERS: Internal Medicine Nephrology
DX: D89.9 Disorder involving the immune mechanism, unspecified (principal); Z94.0 Kidney transplant status

== ENCOUNTER → 2020-05-12 | Outpatient (CLI) | payer MEDICARE ==
[2020-05-12 07:56] LABS: BASO % 0.5 % (0.0-1.0); EOS # 0.1 10*3/uL (0.0-0.4); EOS % 5.9 % (1.0-4.0); HEMATOCRIT 34.6 % (37.0-47.0); LYMPH # 0.4 10*3/uL (1.3-4.4); LYMPH % 20.6 % (27.0-41.0); MEAN CELL VOLUME 98.3 fl (81.0-99.0); MEAN CORPUSCULAR HGB 30.7 pg (27.0-31.0); MEAN CORPUSCULAR HGB CONC 31.2 g/dl (33.0-37.0); MEAN PLATELET VOLUME 11.2 fl (9.6-12.3); MONO # 0.3 10*3/uL (0.1-1.0); MONO % 14.7 % (3.0-9.0); NEUT # 1.2 10*3/uL (2.3-7.9); NEUT % 58.3 % (47.0-73.0); PLATELET COUNT AUTOMATED 142 10*3/uL (130-400); RED BLOOD COUNT 3.52 10*6/uL (4.10-5.10); RED CELL DISTRI WIDTH 14.9 % (0-14.5)
[2020-05-12 08:04] LABS: URINE CREATININE RANDOM 34.5 mg/dL
[2020-05-12 08:07] LABS: BILIRUBIN NEGATIVE (NEGATIVE); BLOOD NEGATIVE (NEGATIVE); CLARITY CLEAR (CLEAR); COLOR YELLOW (YELLOW); GLUCOSE NEGATIVE (NEGATIVE); KETONE NEGATIVE (NEGATIVE); LEUKO ESTERASE NEGATIVE (NEGATIVE); NITRITE NEGATIVE (NEGATIVE); UROBILINOGEN 0.2 E.U./dl (0.2-1.0)
[2020-05-12 08:09] LABS: EPITHELIAL CELLS 0-2; RBC 0-2 rbc/hpf (0-2)
[2020-05-12 08:17] LABS: IRON 95 ug/dL (50-170); TOTAL IRON BINDING CAPACITY 206 ug/dl (250-450)
[2020-05-12 08:22] LABS: ALBUMIN 3.3 gm/dl (3.1-4.5); ALKALINE PHOSPHATASE 94 U/L (45-117); BUN 15 mg/dl (7-24); CHLORIDE 114 mmol/L (98-107); CPK 29 U/L (26-192); CREATININE 1.05 mg/dL (0.55-1.02); LDH 114 U/L (84-246); POTASSIUM 4.5 mmol/L (3.5-5.1); SGOT/AST 12 IU/L (3-35); SGPT/ALT 19 U/L (12-78); SODIUM 143 mmol/L (136-145); TOTAL PROTEIN 6.2 gm/dL (6.4-8.2); URIC ACID 6.2 mg/dL (2.6-6.0)
[2020-05-12 10:58] LABS: VITAMIN D, 25-HYDROXY 36.2 ng/mL (30-100)
[2020-05-12 10:59] LABS: FERRITIN 804.1 ng/mL (10.0-291.0); PTH INTACT 140.6 pg/mL (18.5-88.0)
== END | disposition home or self-care (01) ==
LOC: LAB 07:20
PROVIDERS: Internal Medicine Nephrology
DX: E11.22 Type 2 diabetes mellitus with diabetic chronic kidney disease (principal); D63.1 Anemia in chronic kidney disease; N18.6 End stage renal disease; E21.1 Secondary hyperparathyroidism, not elsewhere classified; E11.29 Type 2 diabetes mellitus with other diabetic kidney complication; D89.9 Disorder involving the immune mechanism, unspecified; Z94.0 Kidney transplant status

== ENCOUNTER → 2020-09-08 | Outpatient (CLI) | payer MEDICARE ==
[2020-09-08 09:24] LABS: BASO % 0.4 % (0.0-1.0); EOS # 0.1 10*3/uL (0.0-0.4); EOS % 2.7 % (1.0-4.0); HEMATOCRIT 33.6 % (37.0-47.0); LYMPH # 0.4 10*3/uL (1.3-4.4); LYMPH % 13.7 % (27.0-41.0); MEAN CELL VOLUME 98.8 fl (81.0-99.0); MEAN CORPUSCULAR HGB 30.6 pg (27.0-31.0); MEAN PLATELET VOLUME 11.4 fl (9.6-12.3); MONO # 0.4 10*3/uL (0.1-1.0); MONO % 16.7 % (3.0-9.0); NEUT # 1.7 10*3/uL (2.3-7.9); NEUT % 65.7 % (47.0-73.0); PLATELET COUNT AUTOMATED 148 10*3/uL (130-400); RED CELL DISTRI WIDTH 13.9 % (0-14.5); WHITE BLOOD COUNT 2.6 10*3/uL (4.8-10.8)
[2020-09-08 09:59] LABS: ALBUMIN 3.7 gm/dl (3.1-4.5); POTASSIUM 4.9 mmol/L (3.5-5.1)
[2020-09-08 10:06] LABS: CREATININE 1.18 mg/dL (0.55-1.02); TOTAL PROTEIN 6.5 gm/dL (6.4-8.2); URIC ACID 6.2 mg/dL (2.6-6.0)
== END | disposition home or self-care (01) ==
LOC: LAB 08:11
PROVIDERS: ATTEND Internal Medicine Nephrology
DX: E03.9 Hypothyroidism, unspecified (principal); D89.9 Disorder involving the immune mechanism, unspecified; Z94.0 Kidney transplant status

== ENCOUNTER → 2020-12-01 | Outpatient (CLI) | payer MEDICARE ==
[2020-12-01 08:09] LABS: HEMATOCRIT 35.9 % (37.0-47.0); MEAN CORPUSCULAR HGB 29.8 pg (27.0-31.0); MEAN CORPUSCULAR HGB CONC 31.8 g/dl (33.0-37.0); PLATELET COUNT AUTOMATED 133 10*3/uL (130-400); RED BLOOD COUNT 3.82 10*6/uL (4.10-5.10); RED CELL DISTRI WIDTH 13.1 % (0-14.5); WHITE BLOOD COUNT 2.5 10*3/uL (4.8-10.8)
[2020-12-01 08:29] LABS: OVALOCYTES FEW; PLATELET SUFFICIENCY NORMAL (NORMAL); TOTAL CELLS COUNTED 100 #CELLS
[2020-12-01 08:45] LABS: ALBUMIN 3.4 gm/dl (3.1-4.5); CREATININE 1.22 mg/dL (0.55-1.02); POTASSIUM 5.1 mmol/L (3.5-5.1); TOTAL PROTEIN 6.6 gm/dL (6.4-8.2); URIC ACID 5.9 mg/dL (2.6-6.0)
== END | disposition home or self-care (01) ==
LOC: LAB 07:50
PROVIDERS: ATTEND Internal Medicine Nephrology
DX: N18.9 Chronic kidney disease, unspecified (principal); T86.10 Unspecified complication of kidney transplant; E83.40 Disorders of magnesium metabolism, unspecified; E83.39 Other disorders of phosphorus metabolism; D63.1 Anemia in chronic kidney disease; Z79.899 Other long term (current) drug therapy; Z94.0 Kidney transplant status

== ENCOUNTER → 2021-02-25 | Outpatient (CLI) | payer MEDICARE ==
[2021-02-25 08:58] LABS: BASO % 0.4 % (0.0-1.0); EOS # 0.1 10*3/uL (0.0-0.4); EOS % 2.5 % (1.0-4.0); HEMATOCRIT 34.5 % (37.0-47.0); LYMPH # 0.4 10*3/uL (1.3-4.4); LYMPH % 16.3 % (27.0-41.0); MEAN CELL VOLUME 95.8 fl (81.0-99.0); MEAN CORPUSCULAR HGB CONC 31.3 g/dl (33.0-37.0); MEAN PLATELET VOLUME 10.8 fl (9.6-12.3); MONO # 0.4 10*3/uL (0.1-1.0); MONO % 18.4 % (3.0-9.0); NEUT # 1.5 10*3/uL (2.3-7.9); PLATELET COUNT AUTOMATED 135 10*3/uL (130-400); RED CELL DISTRI WIDTH 13.9 % (0-14.5); WHITE BLOOD COUNT 2.4 10*3/uL (4.8-10.8)
[2021-02-25 09:37] LABS: ALBUMIN 3.1 gm/dl (3.1-4.5); CREATININE 1.1 mg/dL (0.55-1.02); POTASSIUM 5.2 mmol/L (3.5-5.1); TOTAL PROTEIN 6.4 gm/dL (6.4-8.2); URIC ACID 5.9 mg/dL (2.6-6.0)
== END | disposition home or self-care (01) ==
LOC: LAB 08:01
PROVIDERS: ATTEND Internal Medicine Nephrology
DX: T86.10 Unspecified complication of kidney transplant (principal); N18.9 Chronic kidney disease, unspecified; D63.1 Anemia in chronic kidney disease; E83.40 Disorders of magnesium metabolism, unspecified; E83.39 Other disorders of phosphorus metabolism; Z79.899 Other long term (current) drug therapy; Z94.0 Kidney transplant status

== ENCOUNTER → 2021-03-04 | Outpatient (CLI) | payer MEDICARE | END | disposition home or self-care (01) | LOC: LAB 07:48 | PROVIDERS: ATTEND Internal Medicine | DX: E11.65 Type 2 diabetes mellitus with hyperglycemia (principal) ==

== ENCOUNTER 2021-04-23 18:23 | Emergency (ER) | payer MEDICARE ==
[~2021-04-23] VITALS: Ht 147.3 cm; Wt 50.8 kg
== END 2021-04-23 20:25 | disposition home or self-care (01) ==
LOC: ED 18:23
DX: S61.213A Laceration without foreign body of left middle finger without damage to nail, initial encounter (principal); Z90.710 Acquired absence of both cervix and uterus; Z94.0 Kidney transplant status; Z79.899 Other long term (current) drug therapy; Z79.82 Long term (current) use of aspirin; W26.0XXA Contact with knife, initial encounter; Y93.89 Activity, other specified; Y92.89 Other specified places as the place of occurrence of the external cause; Y99.9 Unspecified external cause status

== ENCOUNTER → 2021-05-13 | Outpatient (CLI) | payer MEDICARE ==
[2021-05-13 08:25] LABS: BILIRUBIN Negative (Negative); BLOOD Negative (Negative); CLARITY Clear (Clear); COLOR Yellow (Yellow); GLUCOSE Negative (Negative); KETONE Negative (Negative); LEUKO ESTERASE Trace (Negative); NITRITE Negative (Negative); UROBILINOGEN 0.2 E.U./dl (0.0-1.0)
[2021-05-13 08:30] LABS: BASO % 0.3 % (0.0-1.0); EOS # 0.1 10*3/uL (0.0-0.4); EOS % 2.8 % (1.0-4.0); LYMPH # 0.5 10*3/uL (1.3-4.4); LYMPH % 13.9 % (27.0-41.0); MEAN CELL VOLUME 95.9 fl (81.0-99.0); MEAN CORPUSCULAR HGB 30.1 pg (27.0-31.0); MEAN CORPUSCULAR HGB CONC 31.4 g/dl (33.0-37.0); MEAN PLATELET VOLUME 10.9 fl (9.6-12.3); MONO # 0.5 10*3/uL (0.1-1.0); NEUT # 2.5 10*3/uL (2.3-7.9); NEUT % 69.4 % (47.0-73.0); PLATELET COUNT AUTOMATED 141 10*3/uL (130-400); RED BLOOD COUNT 3.65 10*6/uL (4.10-5.10); RED CELL DISTRI WIDTH 13.2 % (0-14.5); WHITE BLOOD COUNT 3.6 10*3/uL (4.8-10.8)
[2021-05-13 08:56] LABS: ALBUMIN 3.5 gm/dl (3.1-4.5); BUN 21 mg/dl (7-24); CHLORIDE 113 mmol/L (98-107); CREATININE 0.92 mg/dL (0.55-1.02); SGOT/AST 15 IU/L (3-35); SGPT/ALT 26 U/L (12-78); SODIUM 142 mmol/L (136-145); TOTAL PROTEIN 6.5 gm/dL (6.4-8.2); URIC ACID 6.1 mg/dL (2.6-6.0)
[2021-05-13 08:59] LABS: ALKALINE PHOSPHATASE 103 U/L (45-117); CPK 33 U/L (26-192); IRON 76 ug/dL (50-170); LDH 123 U/L (84-246); TOTAL IRON BINDING CAPACITY 252 ug/dl (250-450)
[2021-05-13 09:06] LABS: URINE CREATININE RANDOM 28.6 mg/dL
[2021-05-13 09:15] LABS: FERRITIN 688.5 ng/mL (10.0-291.0); PTH INTACT 136.7 pg/mL (18.5-88.0)
[2021-05-13 09:26] LABS: EPITHELIAL CELLS 0-2
[2021-05-13 09:27] LABS: BACTERIA TRACE
== END | disposition home or self-care (01) ==
LOC: LAB 07:56
PROVIDERS: Internal Medicine Nephrology; ATTEND Internal Medicine Nephrology
DX: T86.10 Unspecified complication of kidney transplant (principal); E83.40 Disorders of magnesium metabolism, unspecified; E83.39 Other disorders of phosphorus metabolism; N18.6 End stage renal disease; D63.1 Anemia in chronic kidney disease; N18.9 Chronic kidney disease, unspecified; Z94.0 Kidney transplant status; Z79.899 Other long term (current) drug therapy

== ENCOUNTER 2021-06-29 08:56 | Inpatient (IN) | payer MEDICARE ==
[~2021-06-29] VITALS: Wt 49.0 kg
[2021-06-29 09:02] VITALS: BP 186/78
[2021-06-29 09:32] LABS: HEMATOCRIT 35.1 % (37.0-47.0); LYMPH # 0.2 10*3/uL (1.3-4.4); LYMPH % 5.8 % (27.0-41.0); MEAN CELL VOLUME 87.1 fl (81.0-99.0); MEAN CORPUSCULAR HGB 29.8 pg (27.0-31.0); MEAN CORPUSCULAR HGB CONC 34.2 g/dl (33.0-37.0); MEAN PLATELET VOLUME 10.5 fl (9.6-12.3); MONO # 0.4 10*3/uL (0.1-1.0); MONO % 11.7 % (3.0-9.0); NEUT # 2.6 10*3/uL (2.3-7.9); PLATELET COUNT AUTOMATED 109 10*3/uL (130-400); RED BLOOD COUNT 4.03 10*6/uL (4.10-5.10); RED CELL DISTRI WIDTH 11.9 % (0-14.5); WHITE BLOOD COUNT 3.3 10*3/uL (4.8-10.8)
[2021-06-29 09:42] LABS: ACT PARTIAL THROMBO TIME 36.5 SECONDS (20.0-32.1); INTERNATIONAL NORM RATIO 1.3 (2.0-3.5)
[2021-06-29 09:46] LABS: ALBUMIN 2.4 gm/dl (3.1-4.5); CREATININE 1.2 mg/dL (0.55-1.02); POTASSIUM 4.5 mmol/L (3.5-5.1); TOTAL PROTEIN 5.6 gm/dL (6.4-8.2); TROPONIN I 0.016 ng/ml (<0.045)
[2021-06-29 09:50] VITALS: BP 169/73
[2021-06-29] MEDS ORDERED: HUMALOG 751 UNIT/0.0 SQ (10:13)
[2021-06-29] MEDS ORDERED: PROGRAF1 M1 PO (10:16)
[2021-06-29] MEDS ORDERED: MAGNESIUM OXID400 MG PO (10:18)
[2021-06-29] MEDS ORDERED: LEVOTHYROXINE50 MCG PO (10:19)
[2021-06-29] MEDS ORDERED: CELLCEPT250 MG PO (10:22)
[2021-06-29] MEDS ORDERED: SODIUM BICARBO650 MG PO (10:22)
[2021-06-29] MEDS ORDERED: LISINOPRIL2.5 MG PO (10:23)
[2021-06-29 17:07] LABS: CREATININE 1.23 mg/dL (0.55-1.02); POTASSIUM 4.3 mmol/L (3.5-5.1)
[2021-06-29 19:00] VITALS: BP 113/50
[2021-06-29 20:00] VITALS: BP 148/83
[2021-06-30] VITALS: BP 133/61
[2021-06-30 05:40] LABS: BILIRUBIN Negative (Negative); BLOOD Negative (Negative); CLARITY Clear (Clear); COLOR Yellow (Yellow); GLUCOSE Negative (Negative); KETONE Negative (Negative); LEUKO ESTERASE Negative (Negative); NITRITE Negative (Negative); UROBILINOGEN 0.2 E.U./dl (0.0-1.0)
[2021-06-30 05:53] LABS: BACTERIA 1+; EPITHELIAL CELLS 0-2
[2021-06-30 06:29] LABS: CREATININE 1.39 mg/dL (0.55-1.02); POTASSIUM 4.6 mmol/L (3.5-5.1)
[2021-06-30 06:57] LABS: HEMATOCRIT 36.6 % (37.0-47.0); LYMPH # 0.1 10*3/uL (1.3-4.4); LYMPH % 3.5 % (27.0-41.0); MEAN CELL VOLUME 87.8 fl (81.0-99.0); MEAN CORPUSCULAR HGB CONC 34.2 g/dl (33.0-37.0); MEAN PLATELET VOLUME 10.5 fl (9.6-12.3); MONO # 0.4 10*3/uL (0.1-1.0); MONO % 10.5 % (3.0-9.0); NEUT # 3.1 10*3/uL (2.3-7.9); NEUT % 84.7 % (47.0-73.0); PLATELET COUNT AUTOMATED 115 10*3/uL (130-400); RED BLOOD COUNT 4.17 10*6/uL (4.10-5.10); RED CELL DISTRI WIDTH 11.9 % (0-14.5); WHITE BLOOD COUNT 3.7 10*3/uL (4.8-10.8)
[2021-06-30 08:30] VITALS: BP 140/68
[2021-06-30 12:00] VITALS: BP 150/64
[2021-06-30 16:00] VITALS: BP 95/45
[2021-06-30 16:58] LABS: ABG BASE EXCESS -1.3 mmol/L (-2.0-2.0); ARTERIAL BLOOD GAS PH 7.432 (7.35-7.45); ARTERIAL BLOOD GAS PO2 68.7 (80-90)
[2021-06-30 20:00] VITALS: BP 126/55
[2021-07-01] VITALS (81 sets, daily range): BP systolic 42–135; BP diastolic 23–106
[2021-07-01 02:24] LABS: CREATININE 1.49 mg/dL (0.55-1.02); POTASSIUM 4.3 mmol/L (3.5-5.1)
[2021-07-01 06:38] LABS: CREATININE 1.56 mg/dL (0.55-1.02); POTASSIUM 4.4 mmol/L (3.5-5.1); TOTAL PROTEIN 4.9 gm/dL (6.4-8.2)
[2021-07-01 06:51] LABS: BASO % 0.1 % (0.0-1.0); HEMATOCRIT 35.4 % (37.0-47.0); LYMPH # 0.2 10*3/uL (1.3-4.4); LYMPH % 2.6 % (27.0-41.0); MEAN CELL VOLUME 89.2 fl (81.0-99.0); MEAN CORPUSCULAR HGB 29.7 pg (27.0-31.0); MEAN CORPUSCULAR HGB CONC 33.3 g/dl (33.0-37.0); MONO # 0.5 10*3/uL (0.1-1.0); MONO % 6.1 % (3.0-9.0); NEUT # 7.2 10*3/uL (2.3-7.9); NEUT % 89.2 % (47.0-73.0); RED BLOOD COUNT 3.97 10*6/uL (4.10-5.10); RED CELL DISTRI WIDTH 12.2 % (0-14.5)
[2021-07-01 06:52] LABS: PLATELET COUNT AUTOMATED 169 10*3/uL (130-400)
[2021-07-02] VITALS (29 sets, daily range): BP systolic 92–157; BP diastolic 23–89
[2021-07-02 11:26] LABS: BASO % 0.1 % (0.0-1.0); HEMATOCRIT 32.4 % (37.0-47.0); LYMPH # 0.2 10*3/uL (1.3-4.4); LYMPH % 2.6 % (27.0-41.0); MEAN CORPUSCULAR HGB CONC 35.2 g/dl (33.0-37.0); MEAN PLATELET VOLUME 12.1 fl (9.6-12.3); MONO # 0.6 10*3/uL (0.1-1.0); MONO % 8.7 % (3.0-9.0); NEUT % 87.3 % (47.0-73.0); RED CELL DISTRI WIDTH 11.9 % (0-14.5); WHITE BLOOD COUNT 6.9 10*3/uL (4.8-10.8)
[2021-07-02 11:27] LABS: MEAN CELL VOLUME 85.3 fl (81.0-99.0); PLATELET COUNT AUTOMATED 117 10*3/uL (130-400)
[2021-07-02 11:38] LABS: ALBUMIN 2.1 gm/dl (3.1-4.5); CREATININE 2.21 mg/dL (0.55-1.02); POTASSIUM 4.6 mmol/L (3.5-5.1); TOTAL PROTEIN 4.9 gm/dL (6.4-8.2)
[2021-07-02 15:30] LABS: BILIRUBIN Negative (Negative); BLOOD 3+ (Negative); CLARITY Cloudy (Clear); COLOR Yellow (Yellow); GLUCOSE Negative (Negative); KETONE Negative (Negative); LEUKO ESTERASE Negative (Negative); NITRITE Negative (Negative); SPECIFIC GRAVITY 1.015 (1.001-1.030); UROBILINOGEN 0.2 E.U./dl (0.0-1.0)
[2021-07-02 16:02] LABS: BACTERIA 2+; RBC TNTC rbc/hpf (0-2)
[2021-07-03] VITALS: BP 141/42
[2021-07-03 04:00] VITALS: BP 120/40
[2021-07-03 05:55] LABS: ALBUMIN 2.2 gm/dl (3.1-4.5); CREATININE 2.26 mg/dL (0.55-1.02); POTASSIUM 4.8 mmol/L (3.5-5.1); TOTAL PROTEIN 4.8 gm/dL (6.4-8.2)
[2021-07-03 06:18] LABS: HEMATOCRIT 31.4 % (37.0-47.0); MEAN CELL VOLUME 85.1 fl (81.0-99.0); MEAN CORPUSCULAR HGB 30.1 pg (27.0-31.0); MEAN CORPUSCULAR HGB CONC 35.4 g/dl (33.0-37.0); MEAN PLATELET VOLUME 11.4 fl (9.6-12.3); PLATELET COUNT AUTOMATED 115 10*3/uL (130-400); RED BLOOD COUNT 3.69 10*6/uL (4.10-5.10); RED CELL DISTRI WIDTH 11.9 % (0-14.5); WHITE BLOOD COUNT 7.7 10*3/uL (4.8-10.8)
[2021-07-03 07:37] LABS: PLATELET SUFFICIENCY LOW (NORMAL); TOTAL CELLS COUNTED 100 #CELLS
[2021-07-03 08:00] VITALS: BP 136/45
[2021-07-03 16:00] VITALS: BP 105/36
[2021-07-03 20:00] VITALS: BP 124/46
[2021-07-04] VITALS: BP 110/61
[2021-07-04 06:50] LABS: HEMATOCRIT 31.7 % (37.0-47.0); MEAN CELL VOLUME 87.1 fl (81.0-99.0); MEAN CORPUSCULAR HGB 29.9 pg (27.0-31.0); MEAN CORPUSCULAR HGB CONC 34.4 g/dl (33.0-37.0); MEAN PLATELET VOLUME 12.4 fl (9.6-12.3); PLATELET COUNT AUTOMATED 111 10*3/uL (130-400); RED BLOOD COUNT 3.64 10*6/uL (4.10-5.10); WHITE BLOOD COUNT 8.7 10*3/uL (4.8-10.8)
[2021-07-04 07:06] LABS: POTASSIUM 4.6 mmol/L (3.5-5.1)
[2021-07-04 07:10] LABS: CREATININE 2.41 mg/dL (0.55-1.02); TOTAL PROTEIN 4.6 gm/dL (6.4-8.2)
[2021-07-04 08:00] VITALS: BP 114/64
[2021-07-04 08:36] LABS: TOTAL CELLS COUNTED 100 #CELLS
[2021-07-04 08:37] LABS: ACANTHOCYTES FEW; BURR CELLS MODERATE; PLATELET SUFFICIENCY NORMAL (NORMAL); SPHEROCYTES FEW
[2021-07-04 12:00] VITALS: BP 122/90
[2021-07-04 16:00] VITALS: BP 123/52
[2021-07-04 20:00] VITALS: BP 127/64
[2021-07-05] VITALS: BP 130/48
[2021-07-05 06:58] LABS: BASO % 0.1 % (0.0-1.0); HEMATOCRIT 32.5 % (37.0-47.0); LYMPH # 0.2 10*3/uL (1.3-4.4); LYMPH % 2.1 % (27.0-41.0); MEAN CELL VOLUME 86.2 fl (81.0-99.0); MEAN CORPUSCULAR HGB 29.4 pg (27.0-31.0); MEAN CORPUSCULAR HGB CONC 34.2 g/dl (33.0-37.0); MEAN PLATELET VOLUME 12.7 fl (9.6-12.3); MONO # 0.7 10*3/uL (0.1-1.0); NEUT # 7.7 10*3/uL (2.3-7.9); NEUT % 88.6 % (47.0-73.0); PLATELET COUNT AUTOMATED 107 10*3/uL (130-400); RED BLOOD COUNT 3.77 10*6/uL (4.10-5.10); RED CELL DISTRI WIDTH 12.2 % (0-14.5); WHITE BLOOD COUNT 8.6 10*3/uL (4.8-10.8)
[2021-07-05 07:18] LABS: ALBUMIN 2.1 gm/dl (3.1-4.5); CREATININE 2.33 mg/dL (0.55-1.02); POTASSIUM 4.9 mmol/L (3.5-5.1); TOTAL PROTEIN 4.9 gm/dL (6.4-8.2)
[2021-07-05 08:00] VITALS: BP 127/61
[2021-07-05 12:00] VITALS: BP 123/63
[2021-07-05 16:00] VITALS: BP 128/52
[2021-07-05 20:00] VITALS: BP 138/47
[2021-07-06] VITALS: BP 130/59
[2021-07-06 06:58] LABS: ALBUMIN 2.1 gm/dl (3.1-4.5); TOTAL PROTEIN 4.9 gm/dL (6.4-8.2)
[2021-07-06 06:59] LABS: CREATININE 2.33 mg/dL (0.55-1.02)
[2021-07-06 08:00] VITALS: BP 128/50
[2021-07-06 12:00] VITALS: BP 127/63
[2021-07-06 13:45] LABS: BASO % 0.1 % (0.0-1.0); HEMATOCRIT 34.6 % (37.0-47.0); LYMPH # 0.2 10*3/uL (1.3-4.4); LYMPH % 2.5 % (27.0-41.0); MEAN CORPUSCULAR HGB 29.9 pg (27.0-31.0); MEAN CORPUSCULAR HGB CONC 32.7 g/dl (33.0-37.0); MEAN PLATELET VOLUME 12.1 fl (9.6-12.3); MONO # 0.5 10*3/uL (0.1-1.0); MONO % 6.3 % (3.0-9.0); NEUT # 7.3 10*3/uL (2.3-7.9); NEUT % 89.7 % (47.0-73.0); PLATELET COUNT AUTOMATED 91 10*3/uL (130-400); RED BLOOD COUNT 3.78 10*6/uL (4.10-5.10); RED CELL DISTRI WIDTH 12.4 % (0-14.5); WHITE BLOOD COUNT 8.1 10*3/uL (4.8-10.8)
[2021-07-06 13:48] LABS: MEAN CELL VOLUME 91.5 fl (81.0-99.0)
[2021-07-06 14:03] LABS: ALBUMIN 2.1 gm/dl (3.1-4.5); CREATININE 2.39 mg/dL (0.55-1.02); POTASSIUM 4.9 mmol/L (3.5-5.1); TOTAL PROTEIN 4.8 gm/dL (6.4-8.2)
[2021-07-06 20:00] VITALS: BP 134/45
[2021-07-07] VITALS: BP 103/65
[2021-07-07 00:10] VITALS: BP 109/52
[2021-07-07 07:15] LABS: ALBUMIN 1.9 gm/dl (3.1-4.5); CREATININE 2.37 mg/dL (0.55-1.02); POTASSIUM 5.1 mmol/L (3.5-5.1)
[2021-07-07 07:16] LABS: TOTAL PROTEIN 4.4 gm/dL (6.4-8.2)
[2021-07-07 07:19] LABS: HEMATOCRIT 28.4 % (37.0-47.0); LYMPH # 0.2 10*3/uL (1.3-4.4); LYMPH % 2.1 % (27.0-41.0); MEAN CORPUSCULAR HGB 29.8 pg (27.0-31.0); MEAN CORPUSCULAR HGB CONC 34.2 g/dl (33.0-37.0); MEAN PLATELET VOLUME 12.8 fl (9.6-12.3); MONO # 0.6 10*3/uL (0.1-1.0); MONO % 7.9 % (3.0-9.0); NEUT # 6.7 10*3/uL (2.3-7.9); NEUT % 88.9 % (47.0-73.0); PLATELET COUNT AUTOMATED 89 10*3/uL (130-400); RED BLOOD COUNT 3.26 10*6/uL (4.10-5.10); RED CELL DISTRI WIDTH 12.3 % (0-14.5); WHITE BLOOD COUNT 7.6 10*3/uL (4.8-10.8)
[2021-07-07 07:24] LABS: MEAN CELL VOLUME 87.1 fl (81.0-99.0)
[2021-07-07 08:00] VITALS: BP 111/32
[2021-07-07 12:00] VITALS: BP 100/38
[2021-07-07 16:00] VITALS: BP 132/42
[2021-07-07 20:00] VITALS: BP 90/67
[2021-07-08] VITALS (8 sets, daily range): BP systolic 83–135; BP diastolic 35–76
[2021-07-08 07:25] LABS: POTASSIUM 5.1 mmol/L (3.5-5.1)
[2021-07-08 07:26] LABS: HEMATOCRIT 28.1 % (37.0-47.0); LYMPH # 0.1 10*3/uL (1.3-4.4); MEAN CELL VOLUME 88.1 fl (81.0-99.0); MEAN CORPUSCULAR HGB 29.8 pg (27.0-31.0); MEAN CORPUSCULAR HGB CONC 33.8 g/dl (33.0-37.0); MEAN PLATELET VOLUME 12.7 fl (9.6-12.3); MONO # 0.5 10*3/uL (0.1-1.0); MONO % 7.6 % (3.0-9.0); NEUT # 6.4 10*3/uL (2.3-7.9); NEUT % 89.3 % (47.0-73.0); PLATELET COUNT AUTOMATED 76 10*3/uL (130-400); RED BLOOD COUNT 3.19 10*6/uL (4.10-5.10); RED CELL DISTRI WIDTH 12.5 % (0-14.5); WHITE BLOOD COUNT 7.2 10*3/uL (4.8-10.8)
[2021-07-08 07:40] LABS: ALBUMIN 1.8 gm/dl (3.1-4.5); CREATININE 2.02 mg/dL (0.55-1.02); TOTAL PROTEIN 4.4 gm/dL (6.4-8.2)
[2021-07-09] VITALS: BP 133/52
[2021-07-09 06:23] LABS: HEMATOCRIT 29.1 % (37.0-47.0); MEAN CELL VOLUME 88.7 fl (81.0-99.0); MEAN CORPUSCULAR HGB 29.9 pg (27.0-31.0); MEAN CORPUSCULAR HGB CONC 33.7 g/dl (33.0-37.0); MEAN PLATELET VOLUME 13.4 fl (9.6-12.3); PLATELET COUNT AUTOMATED 82 10*3/uL (130-400); RED BLOOD COUNT 3.28 10*6/uL (4.10-5.10); RED CELL DISTRI WIDTH 12.5 % (0-14.5); WHITE BLOOD COUNT 6.9 10*3/uL (4.8-10.8)
[2021-07-09 06:52] LABS: CREATININE 1.84 mg/dL (0.55-1.02); POTASSIUM 5.5 mmol/L (3.5-5.1); TOTAL PROTEIN 4.9 gm/dL (6.4-8.2)
[2021-07-09 08:00] VITALS: BP 130/38
[2021-07-09 09:04] LABS: TOTAL CELLS COUNTED 100 #CELLS
[2021-07-09 09:05] LABS: ACANTHOCYTES MODERATE; PLATELET SUFFICIENCY LOW (NORMAL)
[2021-07-09 12:00] VITALS: BP 105/31
[2021-07-09 16:15] VITALS: BP 134/66
[2021-07-09 20:00] VITALS: BP 119/37
[2021-07-09 20:43] VITALS: BP 128/60
== END 2021-07-09 22:35 | disposition short-term general hospital (02) | DRG 177 ==
LOC: ED 08:56 → EDHOLD 12:43 → ICCU 12:43 → 4E 12:43 → ICCU 07-01 02:59 → 4E 07-03 11:27
PROVIDERS: Emergency Medicine; Family Medicine; Internal Medicine Critical Care Medicine; Internal Medicine Nephrology; Physical Therapist; Podiatrist; ADMIT Internal Medicine; ATTEND Internal Medicine
PROC: XW033E5 Introduction of Remdesivir Anti-infective into Peripheral Vein, Percutaneous Approach, New Technology Group 5 (ICD-10-PCS; principal; 2021-07-01)
PROC: 02HV33Z Insertion of Infusion Device into Superior Vena Cava, Percutaneous Approach (ICD-10-PCS; 2021-07-01)
PROC: B548ZZA Ultrasonography of Superior Vena Cava, Guidance (ICD-10-PCS; 2021-07-01)
PROC: 5A0935A Assistance with Respiratory Ventilation, Less than 24 Consecutive Hours, High Flow/Velocity Cannula (ICD-10-PCS; 2021-07-06)
PROC: 5A0935A Assistance with Respiratory Ventilation, Less than 24 Consecutive Hours, High Flow/Velocity Cannula (ICD-10-PCS; 2021-07-07)
PROC: 0DH63UZ Insertion of Feeding Device into Stomach, Percutaneous Approach (ICD-10-PCS; 2021-07-08)
DX: U07.1 COVID-19 (principal); J12.82 Pneumonia due to coronavirus disease 2019; I50.31 Acute diastolic (congestive) heart failure; J96.90 Respiratory failure, unspecified, unspecified whether with hypoxia or hypercapnia; N18.6 End stage renal disease; E44.0 Moderate protein-calorie malnutrition; S42.474A Nondisplaced transcondylar fracture of right humerus, initial encounter for closed fracture; E87.1 Hypo-osmolality and hyponatremia; N17.9 Acute kidney failure, unspecified; Z94.0 Kidney transplant status; D61.818 Other pancytopenia; I13.2 Hypertensive heart and chronic kidney disease with heart failure and with stage 5 chronic kidney disease, or end stage renal disease; E86.0 Dehydration; R91.8 Other nonspecific abnormal finding of lung field; E11.22 Type 2 diabetes mellitus with diabetic chronic kidney disease; I48.91 Unspecified atrial fibrillation; D69.6 Thrombocytopenia, unspecified; W19.XXXA Unspecified fall, initial encounter; D72.810 Lymphocytopenia; R62.7 Adult failure to thrive; E03.9 Hypothyroidism, unspecified; I95.9 Hypotension, unspecified; I08.1 Rheumatic disorders of both mitral and tricuspid valves; I27.20 Pulmonary hypertension, unspecified; R13.10 Dysphagia, unspecified; Z79.4 Long term (current) use of insulin; I25.2 Old myocardial infarction; Y93.89 Activity, other specified; Y92.89 Other specified places as the place of occurrence of the external cause; Y99.8 Other external cause status; Z79.82 Long term (current) use of aspirin; Z79.899 Other long term (current) drug therapy; Z82.49 Family history of ischemic heart disease and other diseases of the circulatory system; Z68.23 Body mass index [BMI] 23.0-23.9, adult

== ENCOUNTER → 2021-07-24 | Outpatient (CLI) | payer MEDICARE ==
[~2021-07-24] MED LIST changes: +CELLCEPT250 MG PO; +HUMALOG 751 UNIT/0.0 SQ; +LEVOTHYROXINE50 MCG PO; +MAGNESIUM OXID400 MG PO; +PROGRAF1 M1 PO
[2021-07-24 15:52] LABS: BASO % 0.4 % (0.0-1.0); EOS # 0.1 10*3/uL (0.0-0.4); EOS % 1.6 % (1.0-4.0); HEMATOCRIT 24.2 % (37.0-47.0); LYMPH # 0.3 10*3/uL (1.3-4.4); LYMPH % 6.7 % (27.0-41.0); MEAN CELL VOLUME 93.4 fl (81.0-99.0); MEAN CORPUSCULAR HGB 30.1 pg (27.0-31.0); MEAN CORPUSCULAR HGB CONC 32.2 g/dl (33.0-37.0); MEAN PLATELET VOLUME 11.4 fl (9.6-12.3); MONO # 0.3 10*3/uL (0.1-1.0); MONO % 5.1 % (3.0-9.0); NEUT # 4.3 10*3/uL (2.3-7.9); NEUT % 85.8 % (47.0-73.0); PLATELET COUNT AUTOMATED 167 10*3/uL (130-400); RED BLOOD COUNT 2.59 10*6/uL (4.10-5.10); RED CELL DISTRI WIDTH 13.7 % (0-14.5); WHITE BLOOD COUNT 5.1 10*3/uL (4.8-10.8)
[2021-07-24 16:04] LABS: IRON 34 ug/dL (50-170); TOTAL IRON BINDING CAPACITY 260 ug/dl (250-450)
[2021-07-24 17:24] LABS: PTH INTACT 85.2 pg/mL (18.5-88.0); VITAMIN D, 25-HYDROXY 65.5 ng/mL (30-100)
[2021-07-24 17:54] LABS: FERRITIN 1417.1 ng/mL (10.0-291.0)
== END | disposition home or self-care (01) ==
LOC: LAB 15:20
PROVIDERS: ATTEND Internal Medicine Nephrology
DX: N18.6 End stage renal disease (principal); Z79.899 Other long term (current) drug therapy

== ENCOUNTER 2021-08-26 19:30 | Emergency (ER) | payer MEDICARE ==
[~2021-08-26] VITALS: Wt 63.5 kg
== END 2021-08-26 21:30 ==
LOC: ED 19:30
DX: I46.9 Cardiac arrest, cause unspecified (principal); Z79.899 Other long term (current) drug therapy; Z79.82 Long term (current) use of aspirin